=== PATIENT | female | born 1990 | race Two or more races ===

== ENCOUNTER 2020-01-11 13:01 | Emergency (ER) | payer OTHER, SELFPAY ==
--- NOTE | 2020-01-11 13:15 | ECG_ITS ---
Test Reason : CP Blood Pressure : / mmHG Vent. Rate : 065 BPM Atrial Rate : 065 BPM P-R Int : 146 ms QRS Dur : 076 ms QT Int : 386 ms P-R-T Axes : 034 030 031 degrees QTc Int : 401 ms Normal sinus rhythm with sinus arrhythmia Normal ECG Referred By: Leonardo Mccarthy Electronically Signed By:YAYA GENTILE MD
--- NOTE | 2020-01-11 13:15 | XR_ITS ---
EXAMINATION: XR CHEST CLINICAL INFORMATION: Chest pain COMPARISON: Previous chest x-ray March 2019 TECHNIQUE: Frontal view of the chest was obtained. FINDINGS: No significant abnormality is noted involving the heart, lungs, mediastinum, bony thorax or soft tissues. IMPRESSION: Unremarkable examination.
[2020-01-11 13:38] VITALS: BP 119/75; PULSE 60; RESP 16; TEMP 36.6; O2SAT 99; BMI 27.0
--- NOTE | 2020-01-11 13:56 | ED.CHESTPAIN ---
HPI - Chest Pain General Chief Complaint: Chest Pain Stated Complaint: anxiety,chest pressure Time Seen by Provider: 01/11/20 13:15 Source: patient Mode of arrival: ambulatory Limitations: no limitations History of Present Illness HPI narrative: 29-year-old female with past medical history that is significant for anemia, anxiety disorder, remote history of pyelonephritis and Caesarean section presenting today with complaint of substernal chest pain since yesterday. States she had an event yesterday where she felt like she had a panic attack and she frequently gets anxiety started bupropion by her primary care doctor for anxiety has been helping however states having breakthrough anxiety episodes and since yesterday has had associated pain which is similar to her previous. MD complaint: chest pain Onset (ago): day(s) Related Data Previous Rx's Medication Instructions Recorded hydroxyzine HCl 25 mg PO BID PRN #14 tab 01/11/20 Allergies Allergy/AdvReac Type Severity Reaction Status Date / Time No Known Allergies Allergy Unverified 12/21/19 18:09 Review of Systems Review of Systems: Constitutional: No Weight loss, No Fever, No Chills, No Night Sweats, No Fatigue, No Malaise ENT/Mouth: No Hearing loss, No Ear Pain, No Nasal Congestion, No Sinus Pain, No Hoarseness, No sore throat, No Rhinorrhea, No Swallowing Difficulty Eyes: No Eye Pain, No Swelling, No Redness, No Foreign Body, No Discharge, No Vision Changes Cardiovascular: No Chest Pain, No SOB, No Dyspnea on Exertion, No Orthopnea, No Edema, No Palpitations Respiratory: No Cough, No Sputum, No Wheezing, No Smoke Exposure, No Dyspnea Gastrointestinal: No Nausea, No Vomiting, No Diarrhea, No Constipation, No abdominal Pain, No Hematochezia, No Melena Genitourinary: no irregular bleeding, No Dysuria, No Urinary Frequency, No Hematuria, No Urinary Incontinence, No Urgency, No Flank Pain, No Urinary Flow Changes, No Hesitancy Musculoskeletal: No joint pain, No Myalgias, No Joint Swelling Skin: No Skin Lesions, No rash Neuro: No Weakness, No Numbness, No Paresthesias, No Loss of Consciousness, No Dizziness, No Headache Psych: No Anxiety/Panic, No Depression, No SI/HI/AH/VH, No Social Issues, Heme/Lymph: No Bruising, No Bleeding,No Lymphadenopathy Endocrine: No Polyuria, No Polydipsia, No Temperature Intolerance [facility] Past Medical History Attestation statement: The following information was validated with the patient. Medical History (Updated 01/11/20 @ 15:08 by Leonardo Mccarthy NP) Anemia Anxiety Uterine fibroid Social History Social History Alcohol intake: never Smoking Status: Never smoker Use of substances other than those prescribed or required for medical reasons: No Advance Directives: No Advance Directives Information Provided: No Physical Exam Vital Signs and I&O and Narrative: Vital Signs and I&O: Vital Signs Temp 98 F 01/11/20 13:38 Pulse 60 01/11/20 13:38 Resp 16 01/11/20 13:38 BP 119/75 01/11/20 13:38 Pulse Ox 99 01/11/20 13:38 Intake & Output 01/10/20 01/11/20 01/11/20 18:59 06:59 18:59 Weight 64.864 kg Body Mass Index 27.0 Const: General: cooperative and healthy appearing; No acute distress or intoxicated appearing Nutritional Appearance: average body habitus Orientation/consciousness: patient oriented x3 HENMT: Head: Yes normal to inspection Ears: hearing grossly normal bilaterally Eyes: General: appearance normal, both eyes and all related structures Visual White: normal visual white by confrontation Neck: Neck: Yes normal visual inspection and No tender Thyroid: Thyroid normal Chest: Chest palpation & inspection: normal inspection of the chest Resp: Effort & Inspection: normal respiratory effort Cardio: Jugular venous distension: no JVD GI: Inspection: Yes normal to inspection Percussion: Yes normal to percussion Auscultation: normal bowel sounds : General: Yes no CVA tenderness Back/Spine/Pelvis: Back: no CVA tenderness Skin: General skin exam: no rashes or lesions noted Neuro: General: patient oriented x3 Extrem: General: Yes normal to inspection Course Course Course Narrative: Labs finding reviewed. EKG/chest x-ray unremarkable. Will give her prescription of hydroxyzine will contact her primary care doctor for further medication adjustment. No concern for SI or HI. Denies any other complaints. Feels comfortable plan. Stable for discharge. MDM - Chest Pain MDM Narrative Medical decision making narrative: Labs, EKG, chest x-ray. AP more consistent with psychosomatic/musculoskeletal in etiology less likely ACS / PE/dissection. perc negative, heart score 1.7. Differential Diagnosis Differential diagnosis: Likely atypical chest pain, costochondritis and chest pain; Unlikely fracture of rib, pneumothorax, stable angina, unstable angina pectoris and st elevation myocardial infarction Medical Records Data Attestation: I reviewed the patient's medical records. Lab Data Result diagrams: 01/11/20 13:54 01/11/20 13:54 Labs: Lab Results 01/11/20 01/11/20 01/11/20 Range/Units 13:54 13:54 13:54 WBC 3.5 L (4.8-10.8) X10*3/uL RBC 4.32 (4.20-5.50) X10*6/uL Hgb 12.7 (12.0-16.0) g/dl Hct 38.4 (37-47) % MCV 88.9 (80-98) fL MCH 29.4 (27.0-33.0) pg MCHC 33.1 (31.0-35.0) g/dl RDW 11.8 (11.0-16.0) % Plt Count 186 (160-400) X10*3/uL MPV 9.8 (9.4-12.3) fL Immature Gran % (Auto) 0.3 (0.0-0.4) % Neut % (Auto) 63.8 (45-73) % Lymph % (Auto) 24.5 (20-40) % [place] % (Auto) 9.1 (2-11) % Eos % (Auto) 1.7 (0-4) % Baso % (Auto) 0.6 (0-2) % Lymph # (Auto) 0.9 L (1.2-4.9) X10*3/uL [place] # (Auto) 0.3 (0.1-1.2) X10*3/uL Eos # (Auto) 0.1 (0.0-0.4) X10*3/uL Baso # (Auto) 0.0 (0.0-0.2) X10*3/uL Abs Immat Gran (auto) 0.01 (0.00-0.03) X10*3/uL Absolute Neuts (auto) 2.2 (2.0-8.3) X10*3/uL Absolute Nucleated RBC 0.000 (0.0-0.012) X10*3/uL Nucleated RBC % (auto) 0.0 (0.0-0.2) /100WBC Hold Blue Top SEE NOTE Sodium 140 (135-145) mmol/L Potassium 4.5 (3.3-5.1) mmol/l Chloride 106 (96-108) mmol/L Carbon Dioxide 27 (22-29) mmol/L Anion Gap 12 (12-20) BUN 7 L (9-16) mg/dL Creatinine 0.62 (0.5-1.4) mg/dL Estim Creat Clear Calc 117.5 Estimated GFR > 60 Random Glucose 92 (60-115) mg/dL Calcium 9.3 (8.4-10.2) mg/dL Troponin I High Sens (<3.5-17.0) ng/L 01/11/20 Range/Units 13:54 WBC (4.8-10.8) X10*3/uL RBC (4.20-5.50) X10*6/uL Hgb (12.0-16.0) g/dl Hct (37-47) % MCV (80-98) fL MCH (27.0-33.0) pg MCHC (31.0-35.0) g/dl RDW (11.0-16.0) % Plt Count (160-400) X10*3/uL MPV (9.4-12.3) fL Immature Gran % (Auto) (0.0-0.4) % Neut % (Auto) (45-73) % Lymph % (Auto) (20-40) % [place] % (Auto) (2-11) % Eos % (Auto) (0-4) % Baso % (Auto) (0-2) % Lymph # (Auto) (1.2-4.9) X10*3/uL [place] # (Auto) (0.1-1.2) X10*3/uL Eos # (Auto) (0.0-0.4) X10*3/uL Baso # (Auto) (0.0-0.2) X10*3/uL Abs Immat Gran (auto) (0.00-0.03) X10*3/uL Absolute Neuts (auto) (2.0-8.3) X10*3/uL Absolute Nucleated RBC (0.0-0.012) X10*3/uL Nucleated RBC % (auto) (0.0-0.2) /100WBC Hold Blue Top Sodium (135-145) mmol/L Potassium (3.3-5.1) mmol/l Chloride (96-108) mmol/L Carbon Dioxide (22-29) mmol/L Anion Gap (12-20) BUN (9-16) mg/dL Creatinine (0.5-1.4) mg/dL Estim Creat Clear Calc Estimated GFR Random Glucose (60-115) mg/dL Calcium (8.4-10.2) mg/dL Troponin I High Sens < 3.5 (<3.5-17.0) ng/L Imaging Data Chest x-ray: Radiologist's impression: Impression unremarkable examination Dictated by radiologist Dr. Abdi Scores Heart Score History: -0- slightly suspicious ECG: -0- normal Age: -0- < or = 45 Risk factory: -0- no risk factors known Troponin: -0- < or = normal limit Score: 0 Risk: 1.7% Discharge Plan Discharge Clinical Impression: Atypical chest pain, Anxiety Patient Disposition: Home, Self-Care Instructions: Noncardiac Chest Pain (ED), Anxiety (ED) Additional Instructions: taking medication prescribed Follow-up with her primary care doctor as discussed next item treat any concerns or worsening symptoms Thank you Prescriptions: New hydroxyzine HCl 25 mg tablet 25 mg PO BID PRN (Reason: anxiety) Qty: 14 RF: 0 Referrals: Flora Ulloa MD [Primary Care Provider] - 3 days
[2020-01-11 14:01] LABS: MANUAL DIFF FLAG NO
[2020-01-11 14:03] LABS: Basophils Percent Auto 0.6 % (0-2); Eosinophils Absolute Auto 0.1 X10*3/uL (0.0-0.4); Eosinophils Percent Auto 1.7 % (0-4); Hematocrit 38.4 % (37-47); Hemoglobin 12.7 g/dl (12.0-16.0); Imm Gran Abs Auto 0.01 X10*3/uL (0.00-0.03); Imm Gran Pct Auto 0.3 % (0.0-0.4); Lymphocytes Absolute Auto 0.9 X10*3/uL (1.2-4.9); Lymphocytes Percent Auto 24.5 % (20-40); Mean Corpuscular HGB Conc 33.1 g/dl (31.0-35.0); Mean Corpuscular Hemoglobin 29.4 pg (27.0-33.0); Mean Corpuscular Volume 88.9 fL (80-98); Mean Platelet Volume 9.8 fL (9.4-12.3); Monocytes Absolute Auto 0.3 X10*3/uL (0.1-1.2); Monocytes Percent Auto 9.1 % (2-11); Neutrophils Absolute Auto 2.2 X10*3/uL (2.0-8.3); Neutrophils Percent Auto 63.8 % (45-73); Platelet Count 186 X10*3/uL (160-400); Red Blood Count 4.32 X10*6/uL (4.20-5.50); Red Cell Distribution Width 11.8 % (11.0-16.0); White Blood Count 3.5 X10*3/uL (4.8-10.8)
[2020-01-11 14:31] LABS: Anion Gap 12 (12-20); Blood Urea Nitrogen 7 mg/dL (9-16); Calcium 9.3 mg/dL (8.4-10.2); Carbon Dioxide 27 mmol/L (22-29); Chloride 106 mmol/L (96-108); Creatinine Clr Calc Pharmacy 117.5; Estimated Glomerular Filt Rate > 60; Glucose Random 92 mg/dL (60-115); Potassium 4.5 mmol/l (3.3-5.1); Sodium 140 mmol/L (135-145)
[2020-01-11 14:52] LABS: Troponin-I High Sensitivity < 3.5 ng/L (<3.5-17.0)
== END 2020-01-11 15:41 | disposition home or self-care (01) ==
PROVIDERS: Nurse Practitioner Primary Care; Emergency Provider Internal Medicine; PCP Internal Medicine
DX: R07.89 Other chest pain (principal); F41.9 Anxiety disorder, unspecified; D64.9 Anemia, unspecified
CPT/HCPCS: 36415; 71045; 80048; 84484; 85025; 93005; 99284

== ENCOUNTER 2020-01-16 15:55 | Outpatient (REF) | payer OTHER, SELFPAY | END 2020-01-16 15:56 | disposition home or self-care (01) | LOC: HO.LAB 15:55 | PROVIDERS: Visit Provider Internal Medicine | DX: Z20.828 Contact with and (suspected) exposure to other viral communicable diseases (principal) | CPT/HCPCS: 87635 ==

== ENCOUNTER 2020-03-22 11:46 | Outpatient (REF) | payer OTHER, SELFPAY | END 2020-03-22 11:47 | disposition home or self-care (01) | LOC: HO.LAB 11:46 | PROVIDERS: PCP Internal Medicine; Visit Provider Internal Medicine | DX: Z20.828 Contact with and (suspected) exposure to other viral communicable diseases (principal) | CPT/HCPCS: C9803; U0003 ==

== ENCOUNTER 2020-03-27 16:10 | Outpatient (REF) | payer OTHER, SELFPAY ==
--- NOTE | 2020-03-27 16:19 | XR_ITS ---
EXAMINATION: XR KNEE, RIGHT CLINICAL INFORMATION: Pain COMPARISON: None TECHNIQUE: Frontal and lateral of the right knee. FINDINGS: Bones and soft tissues are normal. No fracture or joint effusion. Alignment is anatomic. Mild narrowing of medial joint space suggest mild DJD.. No abnormal soft tissue calcification. XR/XR knee RT 2V IMPRESSION: Mild DJD.
== END 2020-03-27 16:11 | disposition home or self-care (01) ==
LOC: HO.XRAY 16:10
PROVIDERS: PCP Internal Medicine; Visit Provider Internal Medicine
DX: M25.561 Pain in right knee (principal)
CPT/HCPCS: 73560

== ENCOUNTER 2020-04-15 09:08 | Outpatient (REF) | payer OTHER, SELFPAY ==
[2020-04-15 10:49] LABS: HBc Num1 0.08 S/CO (0.00-0.79); Hepatitis B Core Antibody Nonreactive (Nonreactive)
[2020-04-16 12:17] LABS: Rubeola IgG (Measles) >300.00 AU/mL
== END 2020-04-15 09:09 | disposition home or self-care (01) ==
LOC: HO.LAB 09:08
PROVIDERS: PCP Internal Medicine; Visit Provider Nurse Practitioner Family
DX: Z00.00 Encounter for general adult medical examination without abnormal findings (principal)
CPT/HCPCS: 36415; 86704; 86735; 86762; 86765; 86787

== ENCOUNTER 2020-04-16 08:00 | Outpatient (RCR) | payer OTHER, SELFPAY ==
--- NOTE | 2020-04-09 10:16 | MHC.PT.EP ---
[facility] [place] Office [place] Office [place] Office [address] Ronald Reynoso [address] [phone] F: [phone] F: [phone] F: [phone] F: [phone] Physical Therapy Plan of Care Date of Evaluation: 04/09/20 Date of Surgery: N/A Diagnosis: Chronic (R) Knee pain Assessment: Pt is a 29 y.o.f. with chief complaint of (R) knee pain located along medial joint line. Pt presents today with weakness in (R) knee extensors and (B) hip abductors, gait abnormalities including genu valgus, (R) trendelenburg, and pain. Pt genu valgus during gait is likely due to weak hip abductors. Pt sxs are consistent with possible medial meniscus tear resulting in pain and difficulty with walking,, driving, and stairs. Pt will benefit from skilled PT to increase hip and knee musculature strength and decrease pain to allow pt to return to prior level of activity with less limitations. Frequency and Duration: The patient will be seen 2x/week for 5 weeks Short Term Goals: 3 weeks: 1. Initiate HEP 2. Pt will improve B hip strength by one MMT grade 3. Pt will be able to ambulate > 15min with pain < 3/10 Costume Maker Goals: 5 weeks: 1. I with HEP and self management of sx 2. Pt will be able to ascend/descend stairs in step through pattern with pain < 2/10 3. Pt will be able to walk > 25 min with pain < 3/10 Treatment Plan: Modalities to reduce pain, spasms and effusion. Manual therapy to restore motion and function. Therapeutic exercise to improve strength and flexibility. Neuromuscular re-education for posture and balance. Therapeutic activities to return to functional activities of daily living. Electronically signed by: Amy Cameron PT DPT Please sign and return to therapist. Thank you for your referral.
--- NOTE | 2020-05-02 09:57 | MHC.PT.DC ---
[facility] [place] Office [place] Office [place] Office [address] Ronald Reynoso 140 [facility] [phone] F: [phone] F: [phone] F: [phone] F: [phone] Physical Therapy Discharge Report Diagnosis: Chronic (R) Knee pain Date of Surgery: N/A Date of Evaluation: 04/09/20 Date of Discharge: 05/02/20 Treatments to Date: 3 Cancellations to Date: 0 No Shows to Date: 0 Discharge Status: Visit Non-compliance Discharge Summary: D/c secondary to noncompliance with attendance policy and several no shows Electronically signed by: Amy Cameron PT DPT Please sign and return to therapist. Thank you for your referral.
== END 2020-05-02 09:57 | disposition other institution (70) ==
LOC: HO.PT 08:00
PROVIDERS: PCP Internal Medicine; Visit Provider Internal Medicine
DX: M25.561 Pain in right knee (principal); G89.29 Other chronic pain
CPT/HCPCS: 97110; 97140; 97161

== ENCOUNTER 2020-04-19 09:44 | Outpatient (REF) | payer OTHER, SELFPAY ==
--- NOTE | 2020-04-19 09:49 | XR_ITS ---
EXAMINATION: XR KNEE, RIGHT CLINICAL INFORMATION: Pain. COMPARISON: None TECHNIQUE: Single view of the right knee. FINDINGS: Single sunrise view of the right knee reveals mild lateral subluxation of patella in relation to anterior intercondylar depression of distal femur. No bony erosive changes no loose bodies or soft tissue swelling seen. XR/XR knee RT 2V IMPRESSION: Mild lateral subluxation of patella in relation to the intercondylar depression distal femur. No acute fracture or loose body seen.
== END 2020-04-19 09:45 | disposition home or self-care (01) ==
LOC: HO.XRAY 09:44
PROVIDERS: PCP Internal Medicine; Visit Provider Physician Assistant
DX: M25.561 Pain in right knee (principal); M23.91 Unspecified internal derangement of right knee
CPT/HCPCS: 73560; 99202

== ENCOUNTER 2020-04-26 11:37 | Outpatient (REF) | payer OTHER, SELFPAY ==
[2020-04-27 11:28] LABS: C. trachomatis RNA TMA NOT DETECTED (NOT DETECTED); N. gonorrhoeae RNA TMA NOT DETECTED (NOT DETECTED)
== END 2020-04-26 11:38 | disposition home or self-care (01) ==
LOC: HO.LAB 11:37
PROVIDERS: Visit Provider Advanced Practice Midwife
DX: R10.2 Pelvic and perineal pain (principal); Z20.2 Contact with and (suspected) exposure to infections with a predominantly sexual mode of transmission
CPT/HCPCS: 36415; 87491; 87591

== ENCOUNTER 2020-04-26 18:31 | Outpatient (REF) | payer OTHER, SELFPAY ==
--- NOTE | 2020-04-26 18:34 | MR_ITS ---
EXAMINATION: MR KNEE WITHOUT CONTRAST, RIGHT CLINICAL INFORMATION: Medial right knee pain. Evaluate for internal derangement. COMPARISON: Right knee radiographs dated 04/19/2020 and 03/27/2020 TECHNIQUE: MRI of the knee without contrast was performed using routine sequences on a high-field scanner. FINDINGS: MENISCI: Medial Meniscus: Intact. Lateral Meniscus: Intact. LIGAMENTS: Cruciate: Intact. Collateral: Intact. EXTENSOR MECHANISM: Intact. ARTICULAR CARTILAGE/BONE: Patellofemoral Compartment: Normal. Medial Compartment: Normal . Lateral Compartment: Normal. JOINT FLUID AND BURSAE: Normal. MR/MR knee RT wo con IMPRESSION: Unremarkable examination. No acute meniscal or ligamentous injury.
== END 2020-04-26 18:32 | disposition home or self-care (01) ==
LOC: HO.MRI 18:31
PROVIDERS: Visit Provider Physician Assistant
DX: M23.91 Unspecified internal derangement of right knee (principal)
CPT/HCPCS: 73721

== ENCOUNTER 2020-08-30 21:57 | Emergency (ER) | payer OTHER, SELFPAY ==
[2020-08-30 21:59] VITALS: BP 117/72; PULSE 87; RESP 18; TEMP 36.4; O2SAT 95; BMI 30.1
--- NOTE | 2020-08-30 23:57 | ED.NAVMDI ---
HPI - Nausea/Vomiting/Diarrhea General Chief complaint: Nausea/Vomiting/Diarrhea Stated complaint: Vomiting blood/12 weeks Time Seen by Provider: 08/30/20 23:56 Source: patient Mode of arrival: ambulatory Limitations: no limitations History of Present Illness HPI Narrative: Patient 12 weeks with hyperemesis gravidarum vomited small amount of streaks of bright red blood 2 days ago vomited again today and this time was slight blackish patient been feeling burning sensation for the past couple of days taking Zofran with partial response, called triage nurse as the patient go to hospital. Patient denies any melena and no history of any ulcer no significant abdominal pain Related Data Home Medications Medication Instructions Recorded Confirmed buspirone 7.5 mg tablet 7.5 mg PO BID 03/27/20 05/02/20 Previous Rx's Medication Instructions Recorded hydroxyzine HCl 25 mg PO BID PRN #14 tab 01/11/20 naproxen 500 mg tablet 500 mg PO BID 30 Days #60 tab 04/22/20 vitamins with calcium 1 tab PO DAILY 30 Days #30 tab 04/30/20 no.72-iron 29 mg-folic acid 1 mg tablet omeprazole 40 mg PO DAILY #30 cap 08/31/20 sucralfate 1 g PO TID #90 tab 08/31/20 Allergies Allergy/AdvReac Type Severity Reaction Status Date / Time No Known Allergies Allergy Verified 08/30/20 22:05 Review of Systems Review of Systems: Constitutional : No Weight loss, No Fever, No Chills ENT/Mouth : No sore throat, No Rhinorrhea Eyes: No Eye Pain, No Swelling Cardiovascular : No Chest Pain, no palpitations Respiratory : No Cough, No Sputum, no shortness of breath Gastrointestinal :+ Nausea,+ Vomiting, No Diarrhea, No abdominal Pain, no black stools Genitourinary : No Dysuria, No Urinary Frequency Musculoskeletal : No joint pain, No Myalgias, No Joint Swelling Skin : No Skin Lesions, No rash Neuro : No Weakness, No Numbness, No Dizziness, No Headache Psych : No Anxiety/Panic, No Depression Heme/Lymph: No Bruising, No Lymphadenopathy Endocrine : No Polyuria, No Polydipsia All other systems reviewed and are negative [facility] Past Medical History Medical History Anemia Anxiety Leukopenia Physical exam Right knee pain Uterine fibroid Surgical History H/O myomectomy History of section Family History Family History Father Medical history unknown Mother Stroke Maternal Grandmother Diabetes Hypertension Paternal Grandmother Breast cancer Throat cancer Son In good health Social History Social History Alcohol intake: never Advance Directives: No Advance Directives Information Provided: No Patient : Yes (DOREEN: 03/13/21) Current occupational status: employed 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 Oriented X3. No acute distress. Eyes: PERRLA, No Nystagmus ENT: Pharynx normal. Oral Mucosa moist Neck: Normal inspection. Neck supple. CVS: Normal heart rate and rhythm. Pulses normal. Respiratory: No respiratory distress. Equal air entry bilateral, no wheezing/rales/rhonchi Abdomen: Soft and nontender. Gravid uterus Bowel sounds are present, , no CVA tenderness Skin: Skin warm and dry. Normal skin color. Normal skin turgor. Extremities: No lower extremity edema. No calf tenderness Neuro: Oriented X 3. No motor deficit. No sensory deficit.No cerebellar signs , cranial nerves II-XII intact MDM - Nausea/Vomiting/Diarrhea MDM Narrative Medical decision making narrative: Patient with mild gastritis vomiting. Slight streaks of blood no melena vital stable will discharge patient home on Prilosec and Maalox bleeding likely from ruptured blood vessel because patient was retching a lot while vomiting Discharge Plan Discharge Clinical Impression: Gastritis Qualifiers: Gastritis type: superficial Chronicity: acute Gastritis bleeding: without bleeding Qualified Code(s): K29.00 - Acute gastritis without bleeding Patient Disposition: Home, Self-Care Instructions: Gastritis (ED) Additional Instructions: Likely you had small blood vessel ruptured while vomiting and causing the old blood in vomitus Take Prilosec as advised and nausea medication and follow with PCP. Report to the ER/PCP if black stools or bleeding continues Prescriptions: New omeprazole 40 mg capsule,delayed release(DR/EC) 40 mg PO DAILY Qty: 30 RF: 0 sucralfate 1 gram tablet 1 g PO TID Qty: 90 RF: 0 No Action naproxen 500 mg tablet 500 mg PO BID 30 Days Qty: 60 RF: 3 Plus 29 mg iron- 1 mg tablet 1 tab PO DAILY 30 Days Qty: 30 RF: 11 hydroxyzine HCl 25 mg tablet 25 mg PO BID PRN (Reason: anxiety) Qty: 14 RF: 0 buspirone 7.5 mg tablet 7.5 mg PO BID RF: 0 Interventions: ED Discharge Assessment Last Done: 08/31/20 00:41 Discharge Date/Time: 08/31/20 00:42
[2020-08-31] MEDS: Magnesium Hydrox/Alum Hydrox 30 ML ORAL.SUSP PO (00:23)
[2020-08-31] MEDS: Lidocaine HCl Viscous 2 % 15 ML SOLUTION MUCOUS MEM (00:23)
[2020-08-31] MEDS: Omeprazole 40 MG CAPSULE.DR PO (00:24)
== END 2020-08-31 00:42 | disposition home or self-care (01) ==
PROVIDERS: Emergency Provider Internal Medicine; PCP Internal Medicine
DX: O99.611 Diseases of the digestive system complicating pregnancy, first trimester (principal); K29.00 Acute gastritis without bleeding; Z3A.12 12 weeks gestation of pregnancy
CPT/HCPCS: 99283

== ENCOUNTER 2021-01-27 04:16 | Emergency (ER) | payer OTHER, SELFPAY ==
[2021-01-27 04:22] VITALS: BP 104/69; PULSE 127; RESP 18; TEMP 37; O2SAT 100
[2021-01-27 04:29] VITALS: BMI 29.2
--- NOTE | 2021-01-27 04:42 | ED_ITS ---
HPI - Anxiety General Chief Complaint: Anxiety Stated Complaint: cough, preg abt 34 wks Time Seen by Provider: 01/27/21 04:26 Source: patient Mode of arrival: ambulatory Limitations: no limitations History of Present Illness HPI narrative: Patient was emergency room and restlessness. Patient took [id number] decongestant afrin, and since then she has been feeling anxious and restless. Patient states she was tested for COVID 2 days ago, patient had been complaining of cough. Patient states throughout the night after her last dose she is feeling restless, has insomnia. Patient denies chest pain, no shor tness of breath, no lower extremity tenderness. Patient denies contractions, no vaginal fluid leakage or blood. Patient denies vomiting or diarrhea Related Data Previous Rx's Medication Instructions Recorded vitamins with calcium 1 tab PO DAILY 30 Days #30 tab 04/30/20 no.72-iron 29 mg-folic acid 1 mg tablet ( Plus) omeprazole 40 mg capsule,delayed 40 mg PO DAILY #30 cap 08/31/20 release Allergies Allergy/AdvReac Type Severity Reaction Status Date / Time No Known Allergies Allergy Verified 10/09/20 15:05 Review of Systems Review of Systems: Constitutional : No Weight loss, No Fever, No Chills, No Night Sweats, No Fatigue, No Malaise ENT/Mouth : No Hearing loss, No Ear Pain, No Nasal Congestion, No Sinus Pain, No Hoarseness, No sore throat, No Rhinorrhea, No Swallowing Difficulty Eyes: No Eye Pain, No Swelling, No Redness, No Foreign Body, No Discharge, No Vision Changes Cardiovascular : No Chest Pain, No SOB, No Dyspnea on Exertion, No Orthopnea, No Edema, complaining of Palpitations Respiratory : No Cough, No Sputum, No Wheezing, No Smoke Exposure, No Dyspnea Gastrointestinal : No Nausea, No Vomiting, No Diarrhea, No Constipation, No abdominal Pain, No Hematochezia, No Melena Genitourinary : no irregular bleeding, No Dysuria, No Urinary Frequency, No Hematuria, No Urinary Incontinence, No Urgency, No Flank Pain, No Urinary Flow Changes, No Hesitancy Musculoskeletal : No joint pain, No Myalgias, No Joint Swelling Skin : No Skin Lesions, No rash Neuro : No Weakness, No Numbness, No Paresthesias, No Loss of Consciousness, No Dizziness, No Headache Psych : Complaining of anxiety, No Depression, No SI/HI/AH/VH, No Social Issues, Heme/Lymph: No Bruising, No Bleeding,No Lymphadenopathy Endocrine : No Polyuria, No Polydipsia, No Temperature Intolerance [facility] Past Medical History Medical History Anemia Anxiety GERD (gastroesophageal reflux disease) Leukopenia Physical exam Right knee pain Uterine fibroid Surgical History H/O myomectomy History of section Family History Family History (Updated 10/09/20 @ 14:53 by FARZANA Marroquin) Father Medical history unknown Mother Stroke Maternal Grandmother Diabetes Hypertension Paternal Grandmother Breast cancer Throat cancer Son In good health Social History Social History Housing: Apartment Alcohol intake: never Patient Tobacco Use Status: Never used Tobacco e-Cigarette/Vaping Use: Never Used Second Hand Smoke Exposure: No Advance Directives: No Advance Directives Information Provided: Yes Patient : No service: No Current occupational status: unemployed 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 Oriented X3. No acute distress. Anxious Eyes: Pupils equal, round and reactive to light. ENT: Pharynx normal. Neck: Normal inspection. Neck supple. No lymph nodes noted. No crepitus CVS: Tachycardic between 100 and 110, Pulses normal. Normal S1 and S2 Respiratory: No respiratory distress. Breath sounds normal. No Wheezing. No rales Abdomen: Soft and nontender. No rigidity. No distention. Bedside ultrasound shows a heart rate of 130-140 Skin: Skin warm and dry. Normal skin color. Normal skin turgor. Extremities: No lower extremity edema. No calf pain on palpation/squeezing, No Lacerations. No Rash Neuro: Oriented X 3. No motor deficit. No sensory deficit. Moving all extermities. No slurred speech. Course Course Course Narrative: I discussed with the patient that this is likely a side effect of the decongestants that she used. As mentioned above, the baby's heart rate 130-140. Discharge Plan Discharge Clinical Impression: Anxiety, Side effect of medication Patient Disposition: Home, Self-Care Instructions: Heart Palpitations (ED) Prescriptions: No Action Plus 29 mg iron- 1 mg tablet 1 tab PO DAILY 30 Days Qty: 30 RF: 11 omeprazole 40 mg capsule,delayed release(DR/EC) 40 mg PO DAILY Qty: 30 RF: 0
[2021-01-27 05:08] VITALS: PULSE 103
== END 2021-01-27 05:17 | disposition home or self-care (01) ==
PROVIDERS: Emergency Provider Emergency Medicine; PCP Internal Medicine
DX: O9A.213 Injury, poisoning and certain other consequences of external causes complicating pregnancy, third trimester (principal); F41.9 Anxiety disorder, unspecified; T48.5X5A Adverse effect of other anti-common-cold drugs, initial encounter; Z3A.34 34 weeks gestation of pregnancy; Y92.9 Unspecified place or not applicable
CPT/HCPCS: 99283

== ENCOUNTER 2021-01-31 08:44 | Emergency (ER) | payer OTHER, SELFPAY ==
[2021-01-31 09:09] VITALS: BP 103/73; PULSE 96; RESP 18; TEMP 36.1; O2SAT 100; BMI 29.0
--- NOTE | 2021-01-31 09:27 | ED.GENADULT ---
HPI - General Adult General Chief complaint: General Medical Stated complaint: ear issue, anxiety Time Seen by Provider: 01/31/21 09:13 Source: patient Mode of arrival: ambulatory Limitations: no limitations History of Present Illness HPI narrative: 30 y/o female with history of anxiety disorder, who is currently 35 weeks is presenting to the ER with multiple complaints today. She reports she has 1 week of stuffy nose, sinus pressure and feeling like her ears are blocked. She denies any fever chills, shortness of breath, chest pain, nausea, vomiting, diarrhea, abdominal pain. She had a negative COVID swab 1 week ago. She says said she got sick her anxiety has been getting significantly worse. She says before her she was taking BuSpar daily for anxiety, but when she got she was told trying half of the does but that it was safe for her to take. Patient reports only taking as needed, she would not want to take too much medication while she is . She has been taking her BuSpar the last few days in addition she has been trying Benadryl at night to help her sleep, but she reports ongoing severe anxiety with inability to sleep. She is anxious about her scheduled that is planned for February 17. Her anxiety is making her depressed but she is not suicidal or homicidal. MD complaint: Anxiety and nasal congestion Onset (ago): week(s) (1) Location: head and face Radiation: non-radiation Severity: moderate Quality: aching Pain Consistency: constant Relieving factors: medication Exacerbating factors: other (night) Associated symptoms: denies other symptoms Treatments prior to arrival: none Related Data Previous Rx's Medication Instructions Recorded vitamins with calcium 1 tab PO DAILY 30 Days #30 tab 04/30/20 no.72-iron 29 mg-folic acid 1 mg tablet ( Plus) omeprazole 40 mg capsule,delayed 40 mg PO DAILY #30 cap 08/31/20 release amoxicillin 875 mg-potassium 1 tab PO BID #14 tab 01/31/21 clavulanate 125 mg tablet (Augmentin) fluticasone propionate 50 1 spray INTRANASAL BID #16 g 01/31/21 mcg/actuation nasal spray,suspension (Flonase Allergy Relief) Allergies Allergy/AdvReac Type Severity Reaction Status Date / Time No Known Allergies Allergy Verified 10/09/20 15:05 Review of Systems Review of Systems: Constitutional: No Fever, No Chills ENT/Mouth: No sore throat, No Rhinorrhea, No Swallowing Difficulty, +Nasal congestion, +sinus pain, No hearing loss Eyes: No Eye Pain, No Swelling, No Redness Cardiovascular: No Chest Pain, No SOB, No Orthopnea, No Edema Respiratory: No Cough, No Sputum, No Wheezing, No dyspnea Gastrointestinal: No Nausea, No Vomiting, No Diarrhea, No abdominal Pain, No Hematochezia, No Melena Genitourinary: No Dysuria, No Urinary Frequency, No Hematuria Musculoskeletal: No joint pain, No Myalgias Skin: No Skin Lesions, No rash Neuro: No Weakness, No Numbness, No Dizziness, + Headache Psych: + Anxiety/Panic, + Depression Heme/Lymph: No Bruising, No Lymphadenopathy Endocrine: No Polyuria, No Polydipsia PMFSH Past Medical History Medical History Anemia Anxiety GERD (gastroesophageal reflux disease) Leukopenia Physical exam Right knee pain Uterine fibroid Surgical History H/O myomectomy History of section Family History Family History (Updated 10/09/20 @ 14:53 by FARZANA Marroquin) Father Medical history unknown Mother Stroke Maternal Grandmother Diabetes Hypertension Paternal Grandmother Breast cancer Throat cancer Son In good health Social History Social History Housing: Apartment Alcohol intake: never Patient Tobacco Use Status: Never used Tobacco e-Cigarette/Vaping Use: Never Used Second Hand Smoke Exposure: No Advance Directives: No Patient : Yes service: No Current occupational status: unemployed 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 Oriented X3. No acute distress. Eyes: Pupils equal, round and reactive to light. ENT: Pharynx normal. Bilateral nasal turbinates are erythematous and swollen. Bilateral maxillary sinus tenderness. Neck: Normal inspection. Neck supple. CVS: Normal heart rate and rhythm. Pulses normal. Respiratory: No respiratory distress. Breath sounds normal. Abdomen: Gravid uterus to just below the ribs. Nontender. heart tones 147. Pelvic deferred Skin: Skin warm and dry. Normal skin color. Normal skin turgor. No rashes. Extremities: No lower extremity edema. Neuro/psych: Oriented X 3. Well kempt, mental status grossly normal. She is anxious, with good insight and judgment. She is not suicidal or homicidal. Course Course Course Narrative: 30-year-old female who is 35 weeks presenting with over 1 week of nasal congestion, ear pain, not feeling well. Had a negative COVID 1 week ago. She has yellow nasal congestion, consistent with a possible sinus infection. She is also reporting increased anxiety with inability to sleep. She is not suicidal or homicidal. Will get a repeat COVID test and have the care team assessed her. Reevaluation(s) Reevaluation #1: Sonia from the CARE team discussed referral to [facility] in [place]. Patient agreeable. She will try Unisom for sleep. Her nurse tooling engineering tech just called her on the phone because she knows she is in the emergency department and recommended this. We discussed taking BuSpar regularly rather than p.r.n. and she will try that. She will follow-up with her tooling engineering tech in the office. Will treat for acute sinusitis with Augmentin and Flonase. Stable for discharge home. Medical Decision Making Lab Data Labs: Lab Results 01/31/21 Range/Units 09:26 COVID-19 ([facility]) Negative (Negative) COVID-19 Clin Com See Note Discharge Plan Discharge Clinical Impression: Anxiety Sinusitis, acute Qualifiers: Sinusitis location: maxillary Recurrence: non-recurrent Qualified Code(s): J01.00 - Acute maxillary sinusitis, unspecified Patient Disposition: Home, Self-Care Instructions: Sinusitis (ED), Cognitive Behavioral Therapy (ED), Anxiety (ED) Additional Instructions: You were negative for COVID-19. Your being treated for a sinus infection, take the antibiotic as directed and use the prescribed nasal steroid to help decrease the inflammation and swelling in your nose. Both of these medications are safe in . Recommend taking your BuSpar daily to help with your anxiety. T with Benadryl as well Take Tylenol as needed for headache. If Benadryl is not helping his sleep, you can try Unisom. Do not recommend taking these together. Follow up with your tooling engineering tech A referral has been made for [facility] Prescriptions: New amoxicillin-pot clavulanate [Augmentin] 875-125 mg tablet 1 tab PO BID Qty: 14 RF: 0 fluticasone propionate [Flonase Allergy Relief] 50 mcg/actuation spray,suspension 1 spray intranasal BID Qty: 16 RF: 0 No Action Plus 29 mg iron- 1 mg tablet 1 tab PO DAILY 30 Days Qty: 30 RF: 11 omeprazole 40 mg capsule,delayed release(DR/EC) 40 mg PO DAILY Qty: 30 RF: 0
[2021-01-31 10:14] LABS: COVID-19 Test Negative (Negative)
--- NOTE | 2021-01-31 10:19 | MHC.CARE ---
CARE Team met with Pt to provide support in the context of her anxiety. Pt open to a referral to [facility].
== END 2021-01-31 10:44 | disposition home or self-care (01) ==
PROVIDERS: Physician Assistant; Emergency Provider Emergency Medicine; PCP Internal Medicine
DX: O99.513 Diseases of the respiratory system complicating pregnancy, third trimester (principal); J01.00 Acute maxillary sinusitis, unspecified; O99.343 Other mental disorders complicating pregnancy, third trimester; F41.9 Anxiety disorder, unspecified; Z3A.35 35 weeks gestation of pregnancy; Z20.822 Contact with and (suspected) exposure to COVID-19
CPT/HCPCS: 36415; 87635; 99283

== ENCOUNTER 2021-04-01 02:39 | Emergency (ER) | payer OTHER, SELFPAY ==
[2021-04-01 03:04] VITALS: BP 104/64; PULSE 74; RESP 16; TEMP 35.6; O2SAT 99; BMI 27.1
--- NOTE | 2021-04-01 06:23 | PC.NURSE ---
pt c/o waiting and has not been seen yet. pt is c/o I have been waiting for over an hour pt awaiting for MD's eval.
== END 2021-04-01 06:57 | disposition left against medical advice (07) ==
PROVIDERS: Emergency Provider Emergency Medicine; PCP Internal Medicine
DX: H92.09 Otalgia, unspecified ear (principal)
CPT/HCPCS: 99283

== ENCOUNTER 2021-08-19 07:42 | Outpatient (REF) | payer OTHER, SELFPAY ==
[2021-08-19 08:14] LABS: MANUAL DIFF FLAG NO
[2021-08-19 08:54] LABS: Basophils Percent Auto 0.4 % (0-2); Eosinophils Absolute Auto 0.2 X10*3/uL (0.0-0.4); Eosinophils Percent Auto 3.3 % (0-4); Hematocrit 35.6 % (37.0-47.0); Hemoglobin 11.9 g/dl (12.0-16.0); Imm Gran Abs Auto 0.01 X10*3/uL (0.00-0.03); Imm Gran Pct Auto 0.2 % (0.0-0.4); Lymphocytes Absolute Auto 1.4 X10*3/uL (1.2-4.9); Lymphocytes Percent Auto 27.5 % (20-40); Mean Corpuscular HGB Conc 33.4 g/dl (31.0-35.0); Mean Corpuscular Hemoglobin 29.9 pg (27.0-33.0); Mean Corpuscular Volume 89.4 fL (80.0-98.0); Mean Platelet Volume 9.7 fL (9.4-12.3); Monocytes Absolute Auto 0.5 X10*3/uL (0.1-1.2); Monocytes Percent Auto 9.1 % (2-11); Neutrophils Absolute Auto 3.1 x10*3/uL (2.0-8.3); Neutrophils Percent Auto 59.5 % (45-73); Platelet Count 239 X10*3/uL (160-400); Red Blood Count 3.98 X10*6/uL (4.20-5.50); Red Cell Distribution Width 11.9 % (11.0-16.0); White Blood Count 5.2 X10*3/uL (4.8-10.8)
[2021-08-19 09:16] LABS: Iron 49 mcg/dL (30-160); Percent Iron Saturation 14 % (15-50); Total Iron Binding Capacity 346 mcg/dL (228-428); Unsaturated Iron Binding 297 ug/dL
[2021-08-19 09:40] LABS: TSH reflex Free T4 0.72 uIU/mL (0.32-4.0)
== END 2021-08-19 07:43 | disposition home or self-care (01) ==
LOC: HO.LAB 07:42
PROVIDERS: PCP Internal Medicine; Visit Provider Nurse Practitioner Family
DX: I10 Essential (primary) hypertension (principal); L65.9 Nonscarring hair loss, unspecified
CPT/HCPCS: 36415; 83540; 84443; 85025

== ENCOUNTER 2021-10-15 06:57 | Emergency (ER) | payer OTHER, SELFPAY ==
--- NOTE | ~2021-10-15 | US_ITS ---
EXAMINATION: US ABDOMEN LIMITED CLINICAL INFORMATION: Right upper quadrant pain. COMPARISON: None TECHNIQUE: Limited real-time imaging of the right upper quadrant performed. Examination is focused on the gallbladder. FINDINGS: The gallbladder is physiologically distended and has normal wall thickness. No polyps, cholelithiasis or pericholecystic fluid. The visualized portions of liver have normal size and echotexture. The visualized proximal common bile duct is normal in caliber (0.3 - 0.4 cm diameter). US/US abdomen limited IMPRESSION: Gallbladder is normal. No evidence of cholelithiasis, cholecystitis or biliary tract obstruction.
[2021-10-15 07:14] VITALS: BP 111/74; PULSE 112; RESP 18; TEMP 37.3; O2SAT 98; BMI 29.1
[2021-10-15 07:27] LABS: Basophils Percent Auto 0.1 % (0-2); Eosinophils Percent Auto 0.1 % (0-4); Hemoglobin 12.9 g/dl (12.0-16.0); Monocytes Percent Auto 3.6 % (2-11); PLT CLUMP 1; Red Cell Distribution Width 11.8 % (11.0-16.0); SCAN SMEAR FLAG 1
[2021-10-15 07:28] LABS: Hematocrit 38.7 % (37.0-47.0); Imm Gran Abs Auto 0.02 X10*3/uL (0.00-0.03); Imm Gran Pct Auto 0.2 % (0.0-0.4); Lymphocytes Absolute Auto 0.2 X10*3/uL (1.2-4.9); Lymphocytes Percent Auto 2.2 % (20-40); MANUAL DIFF FLAG SCAN; Mean Corpuscular HGB Conc 33.3 g/dl (31.0-35.0); Monocytes Absolute Auto 0.3 X10*3/uL (0.1-1.2); Neutrophils Absolute Auto 8.6 x10*3/uL (2.0-8.3); Neutrophils Percent Auto 93.8 % (45-73); Red Blood Count 4.45 X10*6/uL (4.20-5.50)
[2021-10-15 07:30] LABS: Appearance Urine HAZY; Color Urine YELLOW; Glucose Urine UA NEG (NEG); Leukocyte Esterase Urine NEG (NEG); Nitrite Urine NEG (NEG); Specific Gravity - Urine >= 1.030 (1.005-1.025); Urine Blood NEG (NEG); Urine Ketones NEG (NEG); Urine Protein NEG (NEG-TRACE)
[2021-10-15 07:38] LABS: Mucus Urine 1+ /LPF; Squamous Epithelial Cell Urine 4+ /LPF
[2021-10-15 07:39] LABS: Bacteria Urine TRACE /LPF; WBC Urine 0-2 /HPF (0-4)
[2021-10-15 07:40] LABS: RBC Urine 0 /HPF (0)
[2021-10-15 07:47] LABS: Alanine Aminotransferase 16 U/L (0-31); Albumin Level 4.9 g/dL (3.5-5.0); Alkaline Phosphatase 81 U/L (39-117); Anion Gap 16 (12-20); Aspartate Amino Transferase 19 U/L (5-31); Bilirubin Direct 0.4 mg/dL (0.0-0.5); Blood Urea Nitrogen 14 mg/dL (9-16); Calcium 9.1 mg/dL (8.4-10.2); Carbon Dioxide 21 mmol/L (22-29); Chloride 106 mmol/L (96-108); Creatinine Clr Calc Pharmacy 106.1; Estimated Glomerular Filt Rate > 60; Glucose Random 117 mg/dL (60-115); Potassium 4.7 mmol/L (3.3-5.1); Sodium 138 mmol/L (135-145)
[2021-10-15 07:49] LABS: Platelet Count 223 X10*3/uL (160-400); White Blood Count 9.2 X10*3/uL (4.8-10.8)
[2021-10-15 07:50] LABS: SLIDE REVIEW VERIFIED
[2021-10-15 07:57] VITALS: BP 115/68; PULSE 94; RESP 16; O2SAT 97
--- NOTE | 2021-10-15 08:16 | ED.NAVMDI ---
HPI - Nausea/Vomiting/Diarrhea General Chief complaint: Abdominal Pain Stated complaint: abd pain vomiting Time Seen by Provider: 10/15/21 07:56 Source: patient Mode of arrival: ambulatory Limitations: no limitations History of Present Illness MD elicited complaint: nausea, vomiting, diarrhea and abdominal pain Onset (ago): day(s) (Wednesday) Description of vomiting: food contents and watery Associated nausea: Yes Associated abdominal pain: Yes Location of pain: epigastric and RUQ Pain consistency: intermittent Severity: moderate Quality: cramping Exacerbating factors: eating Relieving factors: none Associated symptoms: loss of appetite, malaise and nausea/vomiting Related Data Home Medications Medication Instructions Recorded Confirmed cyclobenzaprine 5 mg tablet 5 mg PO BID 08/18/21 Previous Rx's Medication Instructions Recorded buspirone 7.5 mg tablet 7.5 mg PO BID 90 days #180 tabs 05/06/21 ondansetron 4 mg disintegrating 4 mg PO Q8H PRN nausea and 10/15/21 tablet vomiting #20 tabs Allergies Allergy/AdvReac Type Severity Reaction Status Date / Time No Known Allergies Allergy Verified 08/18/21 15:02 Review of Systems Review of Systems: Constitutional : No Weight loss, No Fever, No Chills ENT/Mouth : No sore throat, No Rhinorrhea Eyes: No Swelling, No Redness Cardiovascular : No Chest Pain, No SOB, NoEdema Respiratory : No Cough, No Sputum, No Wheezing Gastrointestinal : Positive Nausea, Positive Vomiting, positive Diarrhea, positive abdominal Pain, No Hematochezia, No Melena Genitourinary : No Dysuria, No Urinary Frequency, No Hematuria, No Urgency Musculoskeletal : No joint pain, No Myalgias, No Joint Swelling Skin : No Skin Lesions, No rash Neuro : No Weakness, No Numbness, No Dizziness, No Headache Psych : No Anxiety/Panic, No Depression Heme/Lymph: No Bruising, No Lymphadenopathy Endocrine : No Polyuria, No Polydipsia All other systems reviewed and are negative. Gastrointestinal: Gastrointestinal: Reports nausea PMFSH Past Medical History Medical History (Updated 10/15/21 @ 10:05 by Molly Self DO) Anemia Anxiety GERD (gastroesophageal reflux disease) Leukopenia Physical exam Right knee pain Uterine fibroid Surgical History H/O myomectomy History of section Hx of tubal ligation Family History Family History Father Medical history unknown Mother Stroke Maternal Grandmother Diabetes Hypertension Paternal Grandmother Breast cancer Throat cancer Son In good health Social History Social History Housing: Apartment Alcohol intake: current Alcohol intake frequency: a few times a month Alcohol type: wine and hard liquor Patient Tobacco Use Status: Never used Tobacco e-Cigarette/Vaping Use: Never Used Second Hand Smoke Exposure: No Use of substances other than those prescribed or required for medical reasons: No Advance Directives: No Advance Directives Information Provided: No Patient : No service: No Current occupational status: unemployed 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 Oriented X3. No acute distress. Eyes: Pupils equal, round and reactive to light. ENT: Pharynx mildly dry MM Neck: Normal inspection. Neck supple. CVS: Normal heart rate and rhythm. Pulses normal. Respiratory: No respiratory distress. Breath sounds normal. Abdomen: Soft and mild ttp in epigastric area no rebound + Corral's sign Skin: Skin warm and dry. Normal skin color. Normal skin turgor. Extremities: No lower extremity edema. No calf ttp Neuro: Oriented X 3. No motor deficit. No sensory deficit. Course Course Course Narrative: tolerating PO. labs and US negative, negative UPT MDM - Nausea/Vomiting/Diarrhea MDM Narrative Medical decision making narrative: 31 yo female with no sig PMH here with c/o abdominal pain mostly epigastric and RUQ here with c/o n/v/d since Wednesday at this time will obtain labs, UA, UPT and US of GB - IVF and supportive medications ordered. Denies sick contacts, travel, food exposures or recent antbiotic use. Dispo per results and clinical improvement. Lab Data Result diagrams: 10/15/21 07:19 10/15/21 07:19 Labs: Lab Results 10/15/21 10/15/21 10/15/21 Range/Units 07:19 07:19 07:19 WBC 9.2 (4.8-10.8) X10*3/uL RBC 4.45 (4.20-5.50) X10*6/uL Hgb 12.9 (12.0-16.0) g/dl Hct 38.7 (37.0-47.0) % MCV 87.0 (80.0-98.0) fL MCH 29.0 (27.0-33.0) pg MCHC 33.3 (31.0-35.0) g/dl RDW 11.8 (11.0-16.0) % Plt Count 223 (160-400) X10*3/uL MPV Not Reportable Immature Gran % (Auto) 0.2 (0.0-0.4) % Neut % (Auto) 93.8 H (45-73) % Lymph % (Auto) 2.2 L (20-40) % [place] % (Auto) 3.6 (2-11) % Eos % (Auto) 0.1 (0-4) % Baso % (Auto) 0.1 (0-2) % Lymph # (Auto) 0.2 L (1.2-4.9) X10*3/uL [place] # (Auto) 0.3 (0.1-1.2) X10*3/uL Eos # (Auto) 0.0 (0.0-0.4) X10*3/uL Baso # (Auto) 0.0 (0.0-0.2) X10*3/uL Abs Immat Gran (auto) 0.02 (0.00-0.03) X10*3/uL Absolute Neuts (auto) 8.6 H (2.0-8.3) x10*3/uL Absolute Nucleated RBC 0.000 (0.0-0.012) X10*3/uL Nucleated RBC % (auto) 0.0 (0.0-0.2) /100WBC Smear Tech's Comments VERIFIED Sodium 138 (135-145) mmol/L Potassium 4.7 (3.3-5.1) mmol/L Chloride 106 (96-108) mmol/L Carbon Dioxide 21 L (22-29) mmol/L Anion Gap 16 (12-20) BUN 14 (9-16) mg/dL Creatinine 0.70 (0.5-1.4) mg/dL Estim Creat Clear Calc 106.1 Estimated GFR > 60 Random Glucose 117 H (60-115) mg/dL Calcium 9.1 (8.4-10.2) mg/dL Total Bilirubin 1.0 (0.0-1.0) mg/dL Direct Bilirubin 0.4 (0.0-0.5) mg/dL AST 19 (5-31) U/L ALT 16 (0-31) U/L Alkaline Phosphatase 81 (39-117) U/L Total Protein 8.0 (6.5-8.0) g/dL Albumin 4.9 (3.5-5.0) g/dL Lipase 9 (8-78) U/L Urine Color YELLOW Urine Appearance HAZY Urine pH 6.0 (5.0-8.0) Ur Specific [place] >= 1.030 H (1.005-1.025) Urine Protein NEG (NEG-TRACE) MG/DL Urine Glucose (UA) NEG (NEG) MG/DL Urine Ketones NEG (NEG) MG/DL Urine Blood NEG (NEG) Urine Nitrite NEG (NEG) Ur Leukocyte Esterase NEG (NEG) Urine RBC 0 (0) /HPF Urine WBC 0-2 (0-4) /HPF Ur Squamous Epith Cells 4+ /LPF Urine Bacteria TRACE /LPF Urine Mucus 1+ /LPF Urine Test (NEGATIVE) 10/15/21 Range/Units 08:17 WBC (4.8-10.8) X10*3/uL RBC (4.20-5.50) X10*6/uL Hgb (12.0-16.0) g/dl Hct (37.0-47.0) % MCV (80.0-98.0) fL MCH (27.0-33.0) pg MCHC (31.0-35.0) g/dl RDW (11.0-16.0) % Plt Count (160-400) X10*3/uL MPV Immature Gran % (Auto) (0.0-0.4) % Neut % (Auto) (45-73) % Lymph % (Auto) (20-40) % [place] % (Auto) (2-11) % Eos % (Auto) (0-4) % Baso % (Auto) (0-2) % Lymph # (Auto) (1.2-4.9) X10*3/uL [place] # (Auto) (0.1-1.2) X10*3/uL Eos # (Auto) (0.0-0.4) X10*3/uL Baso # (Auto) (0.0-0.2) X10*3/uL Abs Immat Gran (auto) (0.00-0.03) X10*3/uL Absolute Neuts (auto) (2.0-8.3) x10*3/uL Absolute Nucleated RBC (0.0-0.012) X10*3/uL Nucleated RBC % (auto) (0.0-0.2) /100WBC Smear Tech's Comments Sodium (135-145) mmol/L Potassium (3.3-5.1) mmol/L Chloride (96-108) mmol/L Carbon Dioxide (22-29) mmol/L Anion Gap (12-20) BUN (9-16) mg/dL Creatinine (0.5-1.4) mg/dL Estim Creat Clear Calc Estimated GFR Random Glucose (60-115) mg/dL Calcium (8.4-10.2) mg/dL Total Bilirubin (0.0-1.0) mg/dL Direct Bilirubin (0.0-0.5) mg/dL AST (5-31) U/L ALT (0-31) U/L Alkaline Phosphatase (39-117) U/L Total Protein (6.5-8.0) g/dL Albumin (3.5-5.0) g/dL Lipase (8-78) U/L Urine Color Urine Appearance Urine pH (5.0-8.0) Ur Specific [place] (1.005-1.025) Urine Protein (NEG-TRACE) MG/DL Urine Glucose (UA) (NEG) MG/DL Urine Ketones (NEG) MG/DL Urine Blood (NEG) Urine Nitrite (NEG) Ur Leukocyte Esterase (NEG) Urine RBC (0) /HPF Urine WBC (0-4) /HPF Ur Squamous Epith Cells /LPF Urine Bacteria /LPF Urine Mucus /LPF Urine Test NEGATIVE (NEGATIVE) Discharge Plan Discharge Clinical Impression: Vomiting Qualifiers: Vomiting type: unspecified Nausea presence: with nausea Qualified Code(s): R11.2 - Nausea with vomiting, unspecified Diarrhea Qualifiers: Diarrhea type: unspecified type Qualified Code(s): R19.7 - Diarrhea, unspecified Patient Disposition: Home, Self-Care Instructions: Acute Nausea and Vomiting (ED), Acute Diarrhea (ED) Additional Instructions: return to ED for any worsening symptoms or concerns labs and US negative bland diet for 3 days, avoid dairy for 3 days (yogurt is okay) no ice cream, milk, cheese Prescriptions: New ondansetron 4 mg tablet,disintegrating 4 mg PO Q8H PRN (Reason: nausea and vomiting) Qty: 20 0RF No Action buspirone 7.5 mg tablet 7.5 mg PO BID 90 Days Qty: 180 0RF cyclobenzaprine 5 mg tablet 5 mg PO BID Stand Alone Forms: Work/School Release
[2021-10-15 08:29] LABS: UPreg QC Valid YES; Urine Pregnancy NEGATIVE (NEGATIVE)
[2021-10-15 08:31] LABS: Lipase 9 U/L (8-78)
[2021-10-15] MEDS: Ketorolac Tromethamine 15 MG/ML VIAL IVPUSH (08:32)
[2021-10-15] MEDS: 0.9 % Sodium Chloride 1,000 ML 999 ML IV (08:32)
[2021-10-15] MEDS: Famotidine/PF 20 MG/2 ML VIAL IVPUSH (08:33)
[2021-10-15] MEDS: ondansetron HCL 4 MG/2 ML VIAL IVPUSH (08:33)
--- NOTE | 2021-10-15 08:45 | PC.NURSE ---
Patient arrives complaining of abdominal pain, nausea, vomiting, and diarrhea. Reports improvement when laying on stomach. Abdomen soft and non tender. Skin PWD. Labs drawn in waiting room. Established IV and medicated with zofran, famotidine, toradol, and hung NS 1l. Will continue to monitor.
--- NOTE | 2021-10-15 09:53 | PC.NURSE ---
Sophie stuart given to patient by Dr. Self for PO challenge.
[2021-10-15 10:00] VITALS: BP 97/50; PULSE 90; RESP 16; O2SAT 98
== END 2021-10-15 10:42 | disposition home or self-care (01) ==
PROVIDERS: Emergency Provider Emergency Medicine; PCP Internal Medicine
DX: R11.2 Nausea with vomiting, unspecified (principal); R19.7 Diarrhea, unspecified; R10.11 Right upper quadrant pain; Z79.899 Other long term (current) drug therapy
CPT/HCPCS: 36415; 76705; 80048; 80076; 81001; 81025; 83690; 85025; 96361; 96374; 96375; 99284; 99285; J1885; J2405

== ENCOUNTER 2023-05-17 08:03 | Outpatient (AMB) | payer OTHER, SELFPAY ==
--- NOTE | 2023-05-17 08:05 | A.OFFPC_ITS ---
Vital Signs 05/17/23 08:07 Height 5 ft 1 in Weight 137 lb BMI 25.9 BP 110/70 Blood Pressure Location Lt brachial Position Sitting Intake Visit Reasons: PE Intake Note: Patient here for a physical exam Astrochemist Required: No Accompanied by: Self / Same As Patient Allergies No Known Allergies Allergy (Verified 05/17/23 08:16) Medication List - Last Reconciled 05/17/23 by Flora Allen MD No Known Home Meds Tobacco use date assessed: 05/17/23 Dental Screening Dental Screen Date: 05/17/23 Did you have a dental visit in the last 12 months?: Yes Did you have a dental problem in the last 6 months where you did not have access to dental care?: No Was dental information given to patient?: Patient has dentist HPI HPI Comments History of Present Illness Details This is a 32-year-old female that comes for her physical exam. Last Pap smear was 2021 and was normal. Has a lump in right thigh that has been bothering her. [facility] Medical History (Updated 05/17/23 @ 08:31 by Flora Allen MD) GERD (gastroesophageal reflux disease) Leukopenia Physical exam Right knee pain Uterine fibroid Anemia Anxiety Surgical History Hx of tubal ligation History of section H/O myomectomy Family History Father Medical history unknown Mother Stroke Maternal Grandmother Diabetes Hypertension Paternal Grandmother Breast cancer Throat cancer Son In good health Social History Housing: Apartment Alcohol intake: current Alcohol intake frequency: a few times a month Alcohol type: wine and hard liquor Patient Tobacco Use Status: Never used Tobacco e-Cigarette/Vaping Use: Never Used Second Hand Smoke Exposure: No service: No Current occupational status: employed 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 1. Little interest or pleasure in doing things: not at all 2. Feeling down, depressed, or hopeless: not at all 3. Trouble falling or staying asleep, or sleeping too much: not at all 4. Feeling tired or having little energy: not at all 5. Poor appetite or overeating: not at all 6. Feeling bad about yourself - or that you are a failure or have let yourself or your family down: not at all 7. Trouble concentrating on things, such as reading the newspaper or watching television: not at all 8. Moving or speaking so slowly that other people could have noticed. Or the opposite - being so fidgety or restless that you have been moving around a lot m ore than usual: not at all 9. Thoughts that you would be better off or of hurting yourself in some way: not at all Total score: 0 Depression Screening Interpretation: Negative Depression Screening Done: Yes 29160 - PHQ-9 Billing: Yes Source: Developed by Drs. Esequiel Greenfield, Marilee Lopez, Yosef Kang and colleagues, with an educational mary from [employer]. Thrive Questionnaire Date Thrive assessed: 05/17/23 I am a: Patient What is your living situation today?: I have a steady place to live Within the past 12 months, did the food you bought not last and you didn't have the money to get more?: Never true Within the past 12 months, did you worry whether your food would run out before you got money to buy more?: Never true Do you have trouble paying for medicines?: No Do you have trouble getting transportation to medical appointments?: No Do you have trouble paying your heating and electricity bill?: No Do you have trouble taking care of your child, family member or friend?: No Do you have trouble with day-to-day activities such as bathing, preparing meals, shopping, managing finances, etc.?: No Are you currently unemployed and looking for a job?: No Are you interested in more education?: No Please select the resources that you would like help with: None Currently or been in a relationship where the following occur: no concerns reported THRIVE Score: 0 AUDIT C Alcohol Use Questionnaire (AUDIT-C) 1. How often do you have a drink containing alcohol?: Monthly or less 2. How many drinks containing alcohol do you have on a typical day when you are drinking?: 1 or 2 3. How often do you have six or more drinks on one occasion?: Never Total Score: 1 Score Reviewed/Action Taken: No ANTIONETTE-7 AMB Questionnaire ANTIONETTE-7 Date ANTIONETTE - 7 assessed: 05/17/23 Feeling nervous, anxious, or on edge: 0 = Not at all Not being able to stop or control worryin = Not at all Worrying too much about different things: 0 = Not at all Trouble relaxin = Not at all Being so restless that it is hard to sit still: 0 = Not at all Becoming easily annoyed or irritable: 0 = Not at all Feeling afraid as if something awful might happen: 0 = Not at all Total ANTIONETTE-7 score (0-4 normal; 5-9 mild; 10-14 moderate; 15-21 severe): 0 Source: Developed by Drs. Esequiel Greenfield, Marilee Lopez, Yosef Kang and colleagues, with an educational mary from [employer]. ANTIONETTE-7 Assessment Billing ANTIONETTE-7 Assessment Tool: ANTIONETTE-7 Assessment 33440 Review of Systems Const All systems reviewed & are unremarkable except as noted in HPI and below Eyes Reports no additional complaints, Denies change in vision and Denies other visual disturbances Card Denies chest pain at rest, Denies chest pain with activity, Denies edema, Denies irregular heart rhythm, Denies claudication, Denies dyspnea, Denies dyspnea on exertion, Denies orthopnea, Denies paroxysmal nocturnal dyspnea and Denies slow heart rate Resp Denies cough, Denies dyspnea and Denies dyspnea on exertion GI Denies abdominal pain, Denies change in bowel habits, Denies excessive flatus, Denies nausea and Denies vomiting Denies urinary incontinence, Denies urinary hesitancy and Denies urinary urgency Musc Denies abnormal gait, Denies atrophy, Denies deformity and Denies limited range of motion Skin/Breast Denies bleeding lesions, Denies changing lesions and Denies rash Neuro Denies abnormal gait, Denies behavioral changes, Denies confusion and Denies lack of coordination Psych Denies behavioral changes and Denies confusion Physical exam (Primary Care) Vital Signs: Last Vital Signs BP 110/70 05/17/23 08:07 BMI result Body Mass Index 25.9 Tobacco/Smoking Status: Tobacco use Status Tobacco use date assessed 05/17/23 05/17/23 08:09 Patient Tobacco Use Status Never used Tobacco 05/17/23 08:09 e-Cigarette/Vaping Use Never Used 05/17/23 08:09 PHQ-9: PHQ-9 Score PHQ-9: Total score 0 05/17/23 08:09 Depression Screening Interpretation: Negative Thrive Assessment: Date of Thrive Assessment Date Thrive assessed 05/17/23 05/17/23 08:09 Currently or been in a relationship where the following occur: no concerns reported Const General: No confusion Orientation/consciousness: patient oriented x3 and No confusion HENMT Head: Yes normal to inspection, Yes normocephalic and Yes atraumatic Ears: external ears normal Eyes General: appearance normal, both eyes and all related structures Eyelids: Yes eyelids normal Conjunctivae: conjunctivae normal Neck Neck: Yes normal visual inspection and Yes supple Resp Effort & Inspection: normal respiratory effort Auscultation: clear to auscultation bilaterally Cardio Jugular venous distension: no JVD Rate: regular rate Rhythm: regular rhythm Heart sounds: S1 normal heart sound present and S2 normal heart sound present GI Inspection: Yes normal to inspection Palpation (GI): Soft to palpation and nontender Auscultation: normal bowel sounds Skin Other: lump in left leg Neuro General: patient oriented x3, no focal motor deficits and No confusion Extrem General: Yes full ROM Psych Appearance: grossly normal Office Procedures Flu Questionnaire Does the patient have a severe egg allergy?: No Immunizations flu vacc [id number] 6mos up(PF) 60 mcg(15 mcgx4)/0.5 mL IM syringe Performing Provider: Flora Allen MD [facility] Documented (not given) by: FARZANA Marroquin on 05/17/23 08:10 Reason Not Given: Patient Refused Assessment and Plan Assessment & Plan (1) Physical exam: Code(s): Z00.00 - Encounter for general adult medical examination without abnormal findings Plan: Repeat in a year. Orders: Orders Influenza [id number] Immunization Today Z23 - Encounter for immunization Referrals General Surgery Referral R22.40 - Localized swelling, mass and lump, unspecified lower limb Coding Level of Care Code Est Pt Prev Care 18-39y(41939) Diagnoses Physical exam Z00.00 Additional Codes ANTIONETTE-7 Assessment Billing - ANTIONETTE-7 Assessment Tool: ANTIONETTE-7 Assessment 23841 ([id number]) Time Spent (min) 31
[2023-05-17 08:07] VITALS: BP 110/70; BMI 25.9
== END 2023-05-17 08:26 | disposition home or self-care (01) ==
PROVIDERS: Visit Provider Internal Medicine
DX: Z00.00 Encounter for general adult medical examination without abnormal findings (principal)
CPT/HCPCS: 99395

== ENCOUNTER 2023-06-20 00:44 | Emergency (ER) | payer OTHER, SELFPAY ==
[2023-06-20 00:58] VITALS: BP 111/76; PULSE 107; RESP 18; TEMP 37.3; O2SAT 96; BMI 25.8
[2023-06-20 01:20] VITALS: BP 102/68; PULSE 98; RESP 17; TEMP 37.2; O2SAT 98
--- NOTE | 2023-06-20 01:26 | PC.NURSE ---
pt from home reporting abdominal pain and n/v/d since this afternoon. pt denies chest pain and shortness of breath. pt respirations even and unlabored, a&ox4. 20G placed in right ac, labs obtained and warm blanket given for comfort.
[2023-06-20 01:27] LABS: COVID-19 Test Negative (Negative); IDNOW Serial# 152EDE1D
[2023-06-20 01:28] LABS: MANUAL DIFF FLAG NO
[2023-06-20 01:29] LABS: Basophils Percent Auto 0.2 % (0-2); Eosinophils Absolute Auto 0.1 X10*3/uL (0.0-0.4); Eosinophils Percent Auto 0.8 % (0-4); Hemoglobin 13.8 g/dl (12.0-16.0); Imm Gran Abs Auto 0.03 X10*3/uL (0.00-0.03); Imm Gran Pct Auto 0.3 % (0.0-0.4); Lymphocytes Absolute Auto 0.5 X10*3/uL (1.2-4.9); Lymphocytes Percent Auto 4.3 % (20-40); Mean Corpuscular HGB Conc 33.7 g/dl (31.0-35.0); Mean Corpuscular Hemoglobin 29.9 pg (27.0-33.0); Mean Corpuscular Volume 88.7 fL (80.0-98.0); Mean Platelet Volume 9.4 fL (9.4-12.3); Monocytes Absolute Auto 0.7 X10*3/uL (0.1-1.2); Monocytes Percent Auto 5.7 % (2-11); Neutrophils Absolute Auto 10.4 x10*3/uL (2.0-8.3); Neutrophils Percent Auto 88.7 % (45-73); Platelet Count 236 X10*3/uL (160-400); Red Blood Count 4.62 X10*6/uL (4.20-5.50); Red Cell Distribution Width 12.8 % (11.0-16.0); White Blood Count 11.7 X10*3/uL (4.8-10.8)
[2023-06-20 01:30] LABS: IDNOW Serial# 08D9AD1C; Influenza A Negative (Negative); Influenza B2 Negative (Negative)
[2023-06-20 01:49] LABS: Alanine Aminotransferase 16 U/L (0-31); Albumin Level 4.6 g/dL (3.5-5.0); Alkaline Phosphatase 76 U/L (39-117); Anion Gap 17 (12-20); Aspartate Amino Transferase 18 U/L (5-31); Bilirubin Direct 0.2 mg/dL (0.0-0.5); Bilirubin Total 0.5 mg/dL (0.0-1.0); Blood Urea Nitrogen 16 mg/dL (9-16); Calcium 9.3 mg/dL (8.4-10.2); Carbon Dioxide 18 mmol/L (22-29); Chloride 109 mmol/L (96-108); Creatinine Clr Calc Pharmacy 96.3; Estimated Glomerular Filt Rate > 60; Glucose Random 107 mg/dL (60-115); HCG Quantitative < 2 mIU/mL; Lipase 14 U/L (8-78); Potassium 3.8 mmol/L (3.3-5.1); Sodium 140 mmol/L (135-145); Total Protein 7.9 g/dL (6.5-8.0)
--- NOTE | 2023-06-20 03:18 | ED.NAVMDI ---
HPI - Nausea/Vomiting/Diarrhea General Chief complaint: Abdominal Pain Stated complaint: vomiting Time Seen by Provider: 06/20/23 02:55 Source: patient Mode of arrival: ambulatory Limitations: no limitations History of Present Illness HPI Narrative: Patient comes to the emergency room complaining of nausea vomiting and 1 episode of diarrhea. no chest pain or abdominal pain, no fever or chills. Patient denies being Related Data Previous Rx's Medication Instructions Recorded loperamide 2 mg capsule 2 mg PO Q4H PRN loose stool #10 06/20/23 caps ondansetron HCl 4 mg tablet 4 mg PO Q6H PRN nausea and 06/20/23 vomiting #10 tabs Allergies Allergy/AdvReac Type Severity Reaction Status Date / Time No Known Allergies Allergy Verified 06/20/23 00:58 Review of Systems Review of Systems: Constitutional : No Weight loss, No Fever, No Chills, No Night Sweats, No Fatigue, No Malaise ENT/Mouth : No Hearing loss, No Ear Pain, No Nasal Congestion, No Sinus Pain, No Hoarseness, No sore throat, No Rhinorrhea, No Swallowing Difficulty Eyes: No Eye Pain, No Swelling, No Redness, No Foreign Body, No Discharge, No Vision Changes Cardiovascular : No Chest Pain, No SOB, No Dyspnea on Exertion, No Orthopnea, No Edema, No Palpitations Respiratory : No Cough, No Sputum, No Wheezing, No Smoke Exposure, No Dyspnea Gastrointestinal : Complaining of nausea vomiting, and Diarrhea, No Constipation, No abdominal Pain, No Hematochezia, No Melena Genitourinary : no irregular bleeding, No Dysuria, No Urinary Frequency, No Hematuria, No Urinary Incontinence, No Urgency, No Flank Pain, No Urinary Flow Changes, No Hesitancy Musculoskeletal : No joint pain, No Myalgias, No Joint Swelling Skin : No Skin Lesions, No rash Neuro : No Weakness, No Numbness, No Paresthesias, No Loss of Consciousness, No Dizziness, No Headache Psych : No Anxiety/Panic, No Depression, No SI/HI/AH/VH, No Social Issues, Heme/Lymph: No Bruising, No Bleeding,No Lymphadenopathy Endocrine : No Polyuria, No Polydipsia, No Temperature Intolerance PMFSH Past Medical History Medical History GERD (gastroesophageal reflux disease) Leukopenia Physical exam Right knee pain Uterine fibroid Anemia Anxiety Surgical History Hx of tubal ligation History of section H/O myomectomy Family History Family History Father Medical history unknown Mother Stroke Maternal Grandmother Diabetes Hypertension Paternal Grandmother Breast cancer Throat cancer Son In good health Social History Social History Housing: Apartment Alcohol intake: current Alcohol intake frequency: a few times a month Alcohol type: wine and hard liquor Patient Tobacco Use Status: Never used Tobacco Smoked in Last 30 Days: No e-Cigarette/Vaping Use: Never Used Second Hand Smoke Exposure: No Use of substances other than those prescribed or required for medical reasons: No Advance Directives: No Advance Directives Information Provided: No Patient : No service: No Current occupational status: employed 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 Oriented X3. No acute distress. Eyes: Pupils equal, round and reactive to light. ENT: Pharynx normal. Neck: Normal inspection. Neck supple. No lymph nodes noted. No crepitus CVS: Normal heart rate and rhythm. Pulses normal. Normal S1 and S2 Respiratory: No respiratory distress. Breath sounds normal. No Wheezing. No rales Abdomen: Soft and nontender. No rigidity. No distention. Skin: Skin warm and dry. Normal skin color. Normal skin turgor. Extremities: No lower extremity edema. No Lacerations. No Rash Neuro: Oriented X 3. No motor deficit. No sensory deficit. Moving all extremities. No slurred speech. CN 2 through 12 grossly intact Psych: calm, cooperative, normal affect Medical Decision Making Medical Decision Making MDM Narrative: -my interpretation of labs: White blood cell count 11.7, likely reactive glucose normal limits, LFTs lipase normal, hCG negative. Serology negative for COVID and flu. -patient denies any sick contacts, patient likely having nausea vomiting from something that she would. Likely having gastritis versus gastroenteritis versus viral syndrome. -patient receiving IV fluids and Zofran in 1 dose of loperamide Differential Diagnosis Differential Diagnoses: The differential diagnosis associated with the presentation includes (As above) Lab Data [facility] Lab Attestation statement: I reviewed the patient's lab results. 06/20/23 01:24 06/20/23 01:24 Labs: Lab Results 06/20/23 06/20/23 Range/Units 01:05 01:24 WBC 11.7 H (4.8-10.8) X10*3/uL RBC 4.62 (4.20-5.50) X10*6/uL Hgb 13.8 (12.0-16.0) g/dl Hct 41.0 (37.0-47.0) % MCV 88.7 (80.0-98.0) fL MCH 29.9 (27.0-33.0) pg MCHC 33.7 (31.0-35.0) g/dl RDW 12.8 (11.0-16.0) % Plt Count 236 (160-400) X10*3/uL MPV 9.4 (9.4-12.3) fL Immature Gran % (Auto) 0.3 (0.0-0.4) % Neut % (Auto) 88.7 H (45-73) % Lymph % (Auto) 4.3 L (20-40) % Greenwood % (Auto) 5.7 (2-11) % Eos % (Auto) 0.8 (0-4) % Baso % (Auto) 0.2 (0-2) % Lymph # (Auto) 0.5 L (1.2-4.9) X10*3/uL Greenwood # (Auto) 0.7 (0.1-1.2) X10*3/uL Eos # (Auto) 0.1 (0.0-0.4) X10*3/uL Baso # (Auto) 0.0 (0.0-0.2) X10*3/uL Abs Immat Gran (auto) 0.03 (0.00-0.03) X10*3/uL Absolute Neuts (auto) 10.4 H (2.0-8.3) x10*3/uL Absolute Nucleated RBC 0.000 (0.0-0.012) X10*3/uL Nucleated RBC % (auto) 0.0 (0.0-0.2) /100WBC Sodium 140 (135-145) mmol/L Potassium 3.8 (3.3-5.1) mmol/L Chloride 109 H (96-108) mmol/L Carbon Dioxide 18 L (22-29) mmol/L Anion Gap 17 (12-20) BUN 16 (9-16) mg/dL Creatinine 0.72 (0.5-1.4) mg/dL Estim Creat Clear Calc 96.3 Estimated GFR > 60 Random Glucose 107 (60-115) mg/dL Calcium 9.3 (8.4-10.2) mg/dL Total Bilirubin 0.5 (0.0-1.0) mg/dL Direct Bilirubin 0.2 (0.0-0.5) mg/dL AST 18 (5-31) U/L ALT 16 (0-31) U/L Alkaline Phosphatase 76 (39-117) U/L Total Protein 7.9 (6.5-8.0) g/dL Albumin 4.6 (3.5-5.0) g/dL Lipase 14 (8-78) U/L Beta HCG, Quant < 2 mIU/mL COVID-19 ([facility]) Negative (Negative) COVID-19 Clin Com See Note Influenza Type A ([facility]) Negative (Negative) Influenza Type B ([facility]BY) Negative (Negative) Influenza A & B Note See Note Critical Care Time Critical Care Time Critical Care Time: Yes Total Critical Care Time: 30 Attestation: I have personally provided critical care time. Time includes review of lab data, radiology results, discussion with consultants, and monitoring for potential decompensation. Intervention performed as documented. Discharge Plan Discharge Clinical Impression: Nausea vomiting and diarrhea Patient Disposition: Home, Self-Care Instructions: Acute Nausea and Vomiting (ED), Acute Diarrhea (ED) Additional Instructions: Please follow-up with your primary care physician tomorrow. If you have any worsening or new symptoms, please return to the emergency room or call 911 Prescriptions: New loperamide 2 mg capsule 2 mg PO Q4H PRN (Reason: loose stool) Qty: 10 0RF Rx Instructions: administer after each loose stool until symptoms controlled; do not exceed 8 mg per 24 hrs ondansetron HCl 4 mg tablet 4 mg PO Q6H PRN (Reason: nausea and vomiting) Qty: 10 0RF
[2023-06-20 03:20] VITALS: BP 107/67; PULSE 92; RESP 14; TEMP 36.7; O2SAT 97
[2023-06-20] MEDS: ondansetron HCL 4 MG/2 ML VIAL IVPUSH (03:40)
[2023-06-20] MEDS: 0.9 % Sodium Chloride 1,000 ML 999 ML IVCONT (03:40)
[2023-06-20] MEDS: Loperamide HCl 2 MG CAPSULE 4 MG PO (03:40)
--- NOTE | 2023-06-20 03:42 | PC.NURSE ---
pt medicated per jun, pt tolerated well with water
[2023-06-20 05:44] VITALS: BP 96/56; PULSE 96; RESP 15; TEMP 37.1; O2SAT 98
--- NOTE | 2023-06-20 05:44 | PC.NURSE ---
pt given water at this time, pt tolerated well.
[2023-06-20 06:53] VITALS: BP 96/56; PULSE 96; RESP 15; TEMP 37.1; O2SAT 98
== END 2023-06-20 06:54 | disposition home or self-care (01) ==
PROVIDERS: Emergency Provider Emergency Medicine; PCP Internal Medicine
DX: R11.2 Nausea with vomiting, unspecified (principal); R19.7 Diarrhea, unspecified; Z11.52 Encounter for screening for COVID-19
CPT/HCPCS: 36415; 80053; 82248; 83690; 84702; 85025; 87502; 87635; 96361; 96374; 99284; 99285; J2405

== ENCOUNTER 2024-05-18 07:37 | Outpatient (AMB) | payer OTHER, SELFPAY ==
--- OUTSIDE RECORDS SUMMARY | 2024-05-18 07:40 | XMS_ITS | Clinical Summary ---
Author Organization [address] [address] Phone Care Team Providers Care Drying Room Supervisor Name Role Phone No, Pcp (Do Not Change Name) Primary Care Provid er Unavailable Allergies No known active allergies Medications No known medications Social History Tobacco Use Types Packs/Day Years Used Date Smoking Tobacco: Never Assessed Comments Unknown Sex and Gender Information Value Date Recorded Sex Assigned at Not on file Legal Sex Female 3:25 PM EST Gender Identity Not on file Sexual Orientation Not on file Last Filed Vital Signs Vital Sign Reading Time Taken Comments Blood Pressure 112/69 05/18/2015 8:24 PM EST Pulse 70 05/18/2015 8:24 PM EST Temperature 37.1 ??C (98.7 ??F) 05/18/2015 8:24 PM ES T Respiratory Rate 18 05/18/2015 8:24 PM EST Oxygen Saturation 100% 05/18/2015 8:24 PM EST Inhaled Oxygen Concentration - - Weight 54.4 kg (120 lb) 05/18/2015 7:14 PM EST Height - - Body Mass Index - - Plan of Treatment Health Maintenance Due Date Last Done Comments HIV screening 2005 Hepatitis C screening 2010 Tetanus adult (Td q 10,TDAP once) 2012 Cervical cancer screening 2013 Influenza vaccine 11/04/2023 Covid-19 vaccine series (2023- season) 2023 RSV Discussion (1 - 1-dose 7 5+ series) 09/01/2067 Meningococcal Vaccine Aged Out No aristeo tae eligible based on patient's age to complete this topic Pneumococcal Vaccine Aged Out No long er eligible based on patient's age to complete this topic Insurance UMR [id number] MEDICAID UMR [id number] MEDICAID UMR [id number] MEDICAID U[employer] [id number] MEDICAID Care Teams Drying Room Supervisor Relationship Specialty Start Date End Date No, Pcp (Do Not Change Name) PCP - General 05/18/15
--- OUTSIDE RECORDS SUMMARY | 2024-05-18 07:40 | XMS_ITS | Clinical Summary ---
[facility] Organization [facility] Address [address] [place] [address] Care Team Providers Care Airways Operations Specialist Name Role Phone Flora Allen MD Primary Care Provider [phone] Surgical History Surgery Date Site/Laterality Comments SECTION PROCEDURE: [place] DELIVERY ONLY OTHER SURGICAL HISTORY 10/2019 PROCEDURE: ---- OTHER ----; COMMENT: fibroid removed - [facility] Medical History Medical History Date Comments Anemia 05/06/2012 DX:Anemia; COMME NT: H & H 10.6 31.4 Chlamydia contact, treated 06/07/2017 DX:Ch lamydia contact, treated Bacterial vaginosis 03/31/2016 DX:Bacterial vaginosis; COMMENT: 04/03/15 Yeast infection 03/31/2016 DX:Yeast infecti on; COMMENT: 06/24/12 Vitamin D insufficiency 12/08/2012 DX:Vitam in D insufficiency; COMMENT: Vitamin D = 22 Family History Medical History Relation Name Comments Breast cancer Maternal Grandfather Diabetes Maternal Grandmother Hypertension Mother Diabetes Paternal Grandfather Diabetes Paternal Grandmother Relation Name Status Comments Maternal Grandfather Maternal Grandmother Mother Paternal Grandfather Paternal Grandmother Social History Tobacco Use Types Packs/Day Years Used Date Smoking Tobacco: Never Smokeless Tobacco: Never Alcohol Use Standard Drinks/Week Comments No 0 (1 standard drink = 0.6 oz pur e alcohol) Comments Unknown Sex and Gender Information Value Date Recorded Sex Assigned at Not on file Legal Sex Female 4:38 AM EST Gender Identity Not on file Sexual Orientation Not on file Obstetrics History Plan of Treatment Health Maintenance Due Date Last Done Comments Hepatitis B Vaccines (1 of 3 - 19+ 3-dose series) 09/01/2011 Cervical Cancer Screening: P ap Smear 2013 Depression Screening 03/08/2022 HIV Screening 03/08/2022 Hepatitis C Screening 03/08/2022 Social Influencers of Health Screening 03/08/2022 DTaP,Tdap,and Td Vaccines (2 - Td or Tdap) 06/24/2022 06/24/2012 COVID-19 Vaccine (1 - 2023-2 5 season) 2023 Influenza Vaccine (#1) 2023 HIB Vaccines Aged Out No longer eligi ble based on patient's age to complete this topic HPV Vaccines Aged Out No longer eligi ble based on patient's age to complete this topic Hepatitis A Vaccines Aged Out No long er eligible based on patient's age to complete this topic IPV Vaccines Aged Out No longer eligi ble based on patient's age to complete this topic MMR Vaccines Aged Out No longer eligi ble based on patient's age to complete this topic Meningococcal ACWY Vaccine Aged Out N o longer eligible based on patient's age to complete this topic Pneumococcal Vaccine: Pediat rics (0 to 5 Years) and At-Risk Patients (6 to 64 Years) Aged Out No longer eligi ble based on patient's age to complete this topic RSV Immunization Patients Un thad 20 months Aged Out No longer eligible b ased on patient's age to complete this topic Varicella Vaccines Aged Out No longer eligible based on patient's age to complete this topic Care Teams Airways Operations Specialist Relationship Specialty Start Date End Date Flora Allen MD [address] [place] [address] , [address] [facility] D[facility] PCP - General Internal Medicine 04/17/19
--- NOTE | 2024-05-18 07:41 | A.OFFPC_ITS ---
Vital Signs 05/18/24 07:43 Height 5 ft 1 in Weight 148 lb BMI 28.0 BP 112/70 Blood Pressure Location Lt brachial Position Sitting Intake Visit Reasons: annual exam Intake Note: Patient here for an annual physical exam Commercial Technician Required: Yes Commercial Technician Language: Insulation Packer Name: Flora Allen MD Information Interpreted: non-clinical & clinical Accompanied by: Self / Same As Patient Allergies No Known Allergies Allergy (Verified 05/18/24 07:50) Medication List - Last Reconciled 05/18/24 by Flora Allen MD No Known Home Meds Tobacco use date assessed: 05/18/24 Dental Screening Dental Screen Date: 05/18/24 Did you have a dental visit in the last 12 months?: Yes Did you have a dental problem in the last 6 months where you did not have access to dental care?: No Was dental information given to patient?: Patient has dentist HPI HPI Comments History of Present Illness Details The patient is a 33-year-old female presenting for her physical exam with lumbar pain. She reports that the pain is localized to the lumbar region and occurs when she does not lie down, resulting in stiffness and potential hospitalization if unresolved. She has a history of lumbar pain requiring pr evious medical management but the effectiveness was not detailed. The patient also requires a gynecological follow-up appointment due to procedural changes that have occurred at her previous clinic. She last had a Papanicolaou test in 2020 at the [facility], which returned negative. She mentions navigating new administrative processes to continue her care. - Tetanus vaccine administered in 2020, next due in 2030. - Last Papanicolaou test in 2020, negati ve result. - Patient drinks alcohol infrequently; h as not smoked. - Educational discussion about challenge s with weight management and metabolism with advancing age. [facility] Medical History GERD (gastroesophageal reflux disease) Leukopenia Physical exam Right knee pain Uterine fibroid Anemia Anxiety Surgical History Hx of tubal ligation History of section H/O myomectomy Family History Father Medical history unknown Mother Stroke Maternal Grandmother Diabetes Hypertension Paternal Grandmother Breast cancer Throat cancer Son In good health Social History Housing: Apartment Alcohol intake: current Alcohol intake frequency: a few times a month Alcohol type: wine and hard liquor Patient Tobacco Use Status: Never used Tobacco e-Cigarette/Vaping Use: Never Used Second Hand Smoke Exposure: No service: No Current occupational status: employed 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 1. Little interest or pleasure in doing things: not at all 2. Feeling down, depressed, or hopeless: not at all 3. Trouble falling or staying asleep, or sleeping too much: not at all 4. Feeling tired or having little energy: not at all 5. Poor appetite or overeating: not at all 6. Feeling bad about yourself - or that you are a failure or have let yourself or your family down: not at all 7. Trouble concentrating on things, such as reading the newspaper or watching television: not at all 8. Moving or speaking so slowly that other people could have noticed. Or the opposite - being so fidgety or restless that you have been moving around a lot more than usual: not at all 9. Thoughts that you would be better off or of hurting yourself in some way: not at all Total score: 0 Depression Screening Interpretation: Negative Depression Screening Done: Yes 87827 - PHQ-9 Billing: Yes Source: Developed by Drs. Esequiel Greenfield, Marilee Lopez, Yosef Kang and colleagues, with an educational mary from [employer]. Thrive Questionnaire Date Thrive assessed: 05/18/24 I am a: Patient What is your living situation today?: I have a steady place to live Within the past 12 months, did the food you bought not last and you didn't have the money to get more?: Never true Within the past 12 months, did you worry whether your food would run out before you got money to buy more?: Never true Do you have trouble paying for medicines?: No Do you have trouble getting transportation to medical appointments?: No Do you have trouble paying your heating and electricity bill?: No Do you have trouble taking care of your child, family member or friend?: No Do you have trouble with day-to-day activities such as bathing, preparing meals, shopping, managing finances, etc.?: No Are you currently unemployed and looking for a job?: No Are you interested in more education?: No Please select the resources that you would like help with: None Currently or been in a relationship where the following occur: No concerns reported THRIVE Score: 0 AUDIT C Alcohol Use Questionnaire (AUDIT-C) 1. How often do you have a drink containing alcohol?: Monthly or less 2. How many drinks containing alcohol do you have on a typical day when you are drinking?: 1 or 2 3. How often do you have six or more drinks on one occasion?: Never Total Score: 1 Score Reviewed/Action Taken: No ANTIONETTE-7 AMB Questionnaire ANTIONETTE-7 Date ANTIONETTE - 7 assessed: 05/18/24 Feeling nervous, anxious, or on edge: 0 = Not at all Not being able to stop or control worryin = Not at all Worrying too much about different things: 0 = Not at all Trouble relaxin = Not at all Being so restless that it is hard to sit still: 0 = Not at all Becoming easily annoyed or irritable: 0 = Not at all Feeling afraid as if something awful might happen: 0 = Not at all Total ANTIONETTE-7 score (0-4 normal; 5-9 mild; 10-14 moderate; 15-21 severe): 0 Source: Developed by Drs. Esequiel Greenfield, Marilee Lopez, Yosef Kang and colleagues, with an educational mary from [employer]. ANTIONETTE-7 Assessment Billing ANTIONETTE-7 Assessment Tool: ANTIONETTE-7 Assessment 59432 Review of Systems Const All systems reviewed & are unremarkable except as noted in HPI and below Eyes Reports no additional complaints, Denies change in vision and Denies other visual disturbances Card Denies chest pain at rest, Denies chest pain with activity, Denies edema, Denies irregular heart rhythm, Denies claudication, Denies dyspnea, Denies dyspnea on exertion, Denies orthopnea, Denies paroxysmal nocturnal dyspnea and Denies slow heart rate Resp Denies cough, Denies dyspnea and Denies dyspnea on exertion GI Denies abdominal pain, Denies change in bowel habits, Denies excessive flatus, Denies nausea and Denies vomiting Physical exam (Primary Care) Vital Signs: Last Vital Signs BP 112/70 05/18/24 07:43 BMI result Body Mass Index 28.0 Tobacco/Smoking Status: Tobacco use Status Tobacco use date assessed 05/17/23 05/16/24 11:55 Patient Tobacco Use Status Never used Tobacco 05/16/24 11:55 e-Cigarette/Vaping Use Never Used 05/16/24 11:55 Depression Screening Interpretation: Negative Thrive Assessment: Date of Thrive Assessment Date Thrive assessed 05/17/23 05/16/24 11:55 Currently or been in a relationship where the following occur: No concerns reported [facility] Head: Yes normal to inspection, Yes normocephalic and Yes atraumatic Ears: external ears normal Eyes General: appearance normal, both eyes and all related structures Eyelids: Yes eyelids normal Conjunctivae: conjunctivae normal Neck Neck: Yes normal visual inspection and Yes supple Resp Effort & Inspection: normal respiratory effort Auscultation: clear to auscultation bilaterally Cardio Jugular venous distension: no JVD Rate: regular rate Rhythm: regular rhythm Heart sounds: S1 normal heart sound present and S2 normal heart sound present GI Inspection: Yes normal to inspection Palpation (GI): Soft to palpation and nontender Auscultation: normal bowel sounds Skin General skin exam: no rashes or lesions noted Neuro General: no focal motor deficits Extrem General: Yes full ROM Psych Appearance: grossly normal Coding Level of Care Code Est Pt Level 3 (82805) Est Pt Prev Care 18-39y(66274) Diagnoses Physical exam Z00.00 Lumbar pain M54.50 Women's annual routine gynecological examination Z01.419 Additional Codes ANTIONETTE-7 Assessment Billing - ANTIONETTE-7 Assessment Tool: ANTIONETTE-7 Assessment 31606 ([id number]) PHQ-9 - 72753 - PHQ-9 Billing: Yes ([id number]) Time Spent (min) 32 Assessment & Plan Assessment & Plan (1) Physical exam: Code(s): Z00.00 - Encounter for general adult medical examination without abnormal f indings Category: Medical (2) Lumbar pain: Code(s): M54.50 - Low back pain, unspecified Category: Medical (3) Women's annual routine gynecological examination: Code(s): Z01.419 - Encounter for gynecological examination (general) (routine) without abnormal findings Category: Medical Plan - Prescribe Flexeril 10 mg for lumbar pain management. - Refer to gynecology for follow-up since the patient's previous care has shifted sites. - Discuss lifestyle modifications for weight management and metabolism issues. Patient was informed and verbally consented to the use of an ambient scribe for clinic note documentation during this visit. During the visit, we discussed the current management of lumbar pain with the use of Flexeril 10 mg. We also reviewed the patient's gynecological health maintenance, noting the need for referral due to administrative changes at her previous clinic. I informed her about the challenges related to weight managem ent as metabolic rates decline with age, emphasizing the importance of maintaining a healthy lifestyle. I addressed the timeline for her tetanus vaccination, confirming that her next dose is due in 2030. Orders: Referrals CENTRAL SCHEDULER Referral Z01.419 - Encounter for gynecological examination (general) (routine) without abnormal findings Medications: New cyclobenzaprine 10 mg PO BEDTIME 30 days PRN 30 tabs 3RF muscle spasm M54.50 - Low back pain, unspecified Patient Instructions: - Take Flexeril 10 mg as prescribed for lumbar pain. - Follow up with gynecology for continued health maintenance and screening. - Maintain efforts in healthy dieting and weight management and monitor any changes. - Schedule tetanus vaccination in 2030 as needed. - Report any changes in pain levels or other health concerns.
[2024-05-18 07:43] VITALS: BP 112/70; BMI 28.0
== END 2024-05-18 08:00 | disposition home or self-care (01) ==
PROVIDERS: PCP Internal Medicine; Visit Provider Internal Medicine
DX: Z00.00 Encounter for general adult medical examination without abnormal findings (principal); M54.50 Low back pain, unspecified

== ENCOUNTER → 2024-05-18 07:37 | Outpatient (BNVA) | payer OTHER, SELFPAY | PROVIDERS: PCP Internal Medicine; Visit Provider Internal Medicine | DX: Z00.01 Encounter for general adult medical examination with abnormal findings (principal); M54.50 Low back pain, unspecified; K21.9 Gastro-esophageal reflux disease without esophagitis; F41.1 Generalized anxiety disorder | CPT/HCPCS: 96127; 99212; 99395 ==

== ENCOUNTER 2024-10-04 14:38 | Outpatient (AMB) | payer OTHER, SELFPAY ==
[2024-10-04 14:43] VITALS: BP 112/66; BMI 28.0
--- NOTE | 2024-10-04 14:43 | MHC.OFFVIS ---
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 Doing well with field nurse case manager concerns: she reports external tear, and subsequent itching and irriatation after her transvaginal probe for an ultrasound US recently done at [place]. Patient reports she has a right ovarian cyst that she feels is uncomfortable. Viewed on her patient portal- right-sided 2.7 anechoic cyst with minimal nodularity. Regular monthly menses. Currently is not sexually active. STI screening offered; she accepts. She tries to eat healthy and stays active with exercise. Family history of breast and ovarian cancer. Last pap smear 2020, negative. [facility] Medical History Ovarian cyst Pelvic pain (~10/04/24) GERD (gastroesophageal reflux disease) Leukopenia Physical exam Right knee pain Uterine fibroid Anemia Anxiety Surgical History Hx of tubal ligation History of section H/O myomectomy Family History Father Medical history unknown Mother Stroke Diabetes Maternal Grandmother Diabetes Hypertension Paternal Grandmother Breast cancer Throat cancer Son In good health Family/Other Ovarian cancer Social History Household Members: Children Housing: House Alcohol intake: current Alcohol intake frequency: a few times a month Alcohol type: wine and hard liquor Patient Tobacco Use Status: Never used Tobacco e-Cigarette/Vaping Use: Never Used Second Hand Smoke Exposure: No service: No Current occupational status: employed 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 Sexual orientation: Straight/Heterosexual Gender identity: Female Cognitive needs: No Hearing needs: No Vision needs: No Female Reproductive History Menstrual Age of Menarche: 14 Duration of menses: 3-5 days Date of last menstrual period: 09/12/24 control method: permanent sterilization Total pregnancies: 2 Full term: 2 Number of Living Children: 2 Date of last pap smear: 08/16/20 History of abnormal pap smear: No Review of Systems Const All systems reviewed & are unremarkable except as noted in HPI and below Reports as per HPI Eyes Reports no additional complaints ENT Reports no additional complaints Card Reports no additional complaints Resp Reports no additional complaints GI Reports as per HPI and Reports no additional complaints Reports as per HPI Musc Reports no additional complaints Skin/Breast Reports as per HPI Neuro Reports no additional complaints Psych Reports no additional complaints Endo Reports no additional complaints Eliot/Lymph Reports no additional complaints Aller/Immun Reports no additional complaints Physical Exam Vital Signs: Last Vital Signs BP 112/66 10/04/24 14:43 BMI result Body Mass Index 28.0 Const General: cooperative, healthy appearing, no acute distress, well developed and alert Orientation/consciousness: patient oriented x3 HEENT Head: Yes normal to inspection Eyes General: appearance normal, both eyes and all related structures Neck Neck: Yes normal visual inspection Thyroid: Thyroid normal Chest Chest palpation & inspection: normal inspection of the chest and other (no puckering, dimpling, peau de orange, retraction, discharge, masses) Breast/axilla inspection: normal inspection of the breasts Breast/axilla palpation: normal palpation of the breasts Resp Effort & Inspection: normal respiratory effort GI Inspection: Yes scar Palpation (GI): Soft to palpation Rectal Exam - Female: deferred General: Yes bladder normal to palpation External Female Exam: normal external appearance ( left side, 3 cm perineal tear/abrasion without signs of infection) Speculum Exam - Vagina: normal appearance of the vagina, normal palpation and normal vaginal discharge Speculum Exam - Cervix: normal appearance of the cervix and normal palpation Bimanual exam- vagina & uterus: normal bimanual exam, normal palpation, uterine size normal, bladder normal to palpation, normal palpation and non-tender Bimanual Exam- Adnexa, other: no masses Skin General skin exam: no rashes or lesions noted Rashes: no rashes Neuro General: patient oriented x3 Cognition (Neuro): normal cognition Extrem General: Yes normal to inspection Psych Attitude: cooperative Thought process: Normal thought process present Assessment & Plan Assessment & Plan (1) Women's annual routine gynecological examination: Code(s): Z01.419 - Encounter for gynecological examination (general) (routine) without abnormal findings Category: Medical Plan: Discussed: Current recommendations for pap smears per ASCCP guidelines. Pap obtained. Breast awareness and periodic breast exams. Maintain a healthy lifestyle including a well balanced diet and routine exercise. Use condoms for STI and prevention. Adela care reviewed-advised to continue with tucks pads, adela rinse bottle, pat or air dry, follow up if any concerns with healing. Patient verbalizes understanding and agrees to the plan of care. She was given opportunity to ask questions and all questions were answered to the best of my ability. RTO in one year for annual field nurse case manager examination. This note is constructed using voice recognition software. While every effort has been made to ensure accuracy, slot tag inserter errors may have been included. (2) Pelvic pain: Onset Date: ~10/04/24 Code(s): R10.2 - Pelvic and perineal pain Category: Medical Plan: Plan pelvic ultrasound follow up, GC chlamydia and BV panel obtained. (3) Ovarian cyst: Code(s): N83.209 - Unspecified ovarian cyst, unspecified side Category: Medical Qualifiers: Laterality: right Qualified Code(s): N83.201 - Unspecified ovarian cyst, right side Plan Reviewed patient portal information. Advised to sign for release of her records from [facility]. Pelvic ultrasound planned for a follow up. The patient expressed understanding and agreement with the plan of care. All of her questions and concerns were addressed to the best of my ability. Total time I personally spent on visit and management today: ?20 minutes. Time spent included review of pertinent office notes in the electronic health record; review of laboratory and imaging results; review of personal family medical history; performing physical exam; discussing diagnosis and plan of care with the patient; documenting the encounter in the EMR. This note is constructed using voice recognition software. While every effort has been made to ensure accuracy, slot tag inserter errors may have been included. Orders: Orders Bacterial Vaginosis Panel Today Z11.3 - Encounter for screening for infections with a predominantly sexual mode of transmission Pap Smear Today Z01.419 - Encounter for gynecological examination (general) (routine) without abnormal findings CT NG by PCR Vag/Cerv Today Z11.3 - Encounter for screening for infections with a predominantly sexual mode of transmission US pelvic and transvaginal Today N83.209 - Unspecified ovarian cyst, unspecified side, R10.2 - Pelvic and perineal pain Coding Level of Care Code New Pt Level 2 (37528) New Pt Prev Care 18-39yr([id number] Diagnoses Women's annual routine gynecological examination Z01.419 Pelvic pain R10.2 Cyst of right ovary N83.201 Laterality: right
--- OUTSIDE RECORDS SUMMARY | 2024-10-04 15:04 | XMS_ITS | Clinical Summary ---
Author Organization [facility] Address [address] [place] [address] Phone Care Team Providers Care Dice Maker Name Role Phone Flora Allen MD Primary Care Provider [phone] Allergies No known active allergies Medications oxyCODONE-aceta minophen (PERCOCET) 5-325 mg per tabletIndicatio ns:Acute right flank pain Take 1 tablet by mouth 2 (two) times a day if needed for severe pain for up to 5 doses. Max Daily Amount: 2 tablets 5 tablet 09/24/2024 Active Encounters Date Type Department Care Team Description 09/23/2024 7:41 PM EDT - 09/24/2024 3:26 AM EDT Emergency [facility] Emergency [address] [place] [address] Jw Davey MD Acute right flank pain (Primary Dx) Discharge Disposition: Home or Self Care from Last 3 Months Surgical History Surgery Date Site/Laterality Comments SECTION PROCEDURE: NE DELIVERY ONLY OTHER SURGICAL HISTORY 10/2019 PROCEDURE: [...] Sexual Orientation Not on file Obstetrics History Last Filed Vital Signs Vital Sign Reading Time Taken Comments Blood Pressure 102/75 09/24/2024 3:24 AM EDT Pulse 73 09/24/2024 3:24 AM EDT Temperature 36.7 C (98 F) 09/24/2024 3:24 AM EDT Respiratory Rate 18 09/24/2024 3:24 AM EDT Oxygen Saturation 96% 09/24/2024 3:24 AM EDT Inhaled Oxygen Concentration - - Weight 64.4 kg (142 lb) 09/23/2024 7:11 PM EDT Height 154.9 cm (5' 1 ) 09/23/2024 7:11 PM EDT Body Mass Index 26.83 09/23/2024 7:11 PM EDT Plan of Treatment Health Maintenance Due Date Last Done Comments Hepatitis B Vaccines (1 of 3 - 19+ 3-dose series) 09/01/2011 Cervical Cancer Screening: P ap Smear 2013 Depression Screening 03/08/2022 HIV Screening 03/08/2022 Hepatitis C Screening 03/08/2022 Social Influencers of Health Screening 03/08/2022 DTaP,Tdap,and Td Vaccines (2 - Td or Tdap) 06/24/2022 06/24/2012 COVID-19 Vaccine ( - 2023-2 5 season) 2023 Influenza Vaccine (Season Ended) 2024 HIB Vaccines Aged Out No longer eligi [...] patient's age to complete this topic Meningococcal B Vaccine Aged Out No l onger eligible based on patient's age to complete [...] on patient's age to complete this topic Procedures Procedure Name Priority Date/Time Associated Diagnosis Comments US PELVIS NON OB COMPLETE W TRANSVAGINAL STAT 09/24/2024 12:[address] ABDOMEN PELVIS WO CONTRAST STAT 09/23/2024 8:49 PM EDT POC , URINE DIAGNOSTIC STAT 09/23/2024 7:23 PM EDT [facility] URINE CULTURE TUBE STAT 09/23/2024 7:23 PM EDT URINALYSIS WITH REFLEX MICROSCOPIC AND CULTURE STAT 09/23/2024 7:23 PM EDT URINALYSIS WITH REFLEX MICROSCOPIC AND CULTURE STAT 09/23/2024 7:23 PM EDT CBC WITH AUTO DIFFERENTIAL STAT 09/23/2024 7:17 PM EDT COMPREHENSIVE METABOLIC PANEL STAT 09/23/2024 7:17 PM EDT CBC AND DIFFERENTIAL STAT 09/23/2024 7:17 PM EDT from Last 3 Months Results * US Pelvis Non OB Complete w Transvaginal (09/24/2024 12:50 AM EDT) Anatomical Region Laterality Modality Body, Pelvis Ultrasound 09/24/2024 2:22 AM EDT Impressions 09/24/2024 2:22 AM EDT 1. Negative for ovarian torsion. 2. Nonspecific 2.5 x 2.2 x 2.7 cm anechoic cystic structure present at the right adnexa with minimal mural nodularity. No internal flow identified within this structure on color Doppler imaging. Recommend nonemergent contrast-enhanced pelvis MRI examination for further evaluation. This document has been electronically signed by: Demetri Nolan MD on 09/24/2024 02:22:01 Narrative 09/24/2024 2:22 AM EDT INDICATION: pain US pelvis transabdominal and transvaginal with Doppler Comparison: CT - CT ABD PEL WO CONTRAST - 09/23/24 20:47 EDT Findings: Transabdominal scanning performed for overall anatomy. Transvaginal scanning performed for additional detail. Anteverted uterus measures 9.6 cm in length on transabdominal imaging. Nabothian cysts are present at the level of the cervix. The endometrium measures 4.7 mm in thickness on transvaginal imaging. The right ovary measures 3.7 x 2.0 x 2.5 cm on transvaginal imaging. A 2.5 x 2.2 x 2.7 cm anechoic cystic structure with posterior acoustic enhancement is present at the right adnexa. There appears to be minimal mural nodularity within this structure. No internal flow identified within this structure on color Doppler imaging. The left ovary measures 3.2 x 2.4 x 2.6 cm on transabdominal imaging and 4.2 x 2.2 x 2.8 cm on transvaginal imaging. Flow present at the bilateral ovaries on color and spectral Doppler imaging. Minimal free fluid present within the pelvis. Procedure Note Demetri Nolan MD - 09/24/2024 INDICATION: pain US pelvis transabdominal and transvaginal with Doppler Comparison: CT - CT ABD PEL WO CONTRAST - 09/23/24 20:47 EDT Findings: Transabdominal scanning performed for overall anatomy. Transvaginal scanning performed for additional detail. Anteverted uterus measures 9.6 cm in length on transabdominal imaging. Nabothian cysts are present at the level of the cervix. The endometrium measures 4.7 mm in thickness on transvaginal imaging. The right ovary measures 3.7 x 2.0 x 2.5 cm on transvaginal imaging. A2.5 x 2.2 x 2.7 cm anechoic cystic structure with posterior acoustic enhancement is present at the right adnexa. There appears to be minimal mural nodularity within this structure. No internal flow identifiedwithin this structure on color Doppler imaging. The left ovary measures 3.2 x 2.4 x 2.6 cm on transabdominal imaging and 4.2 x 2.2 x 2.8 cm on transvaginal imaging. Flow present at the bilateral ovaries on color and spectral Doppler imaging. Minimal free fluid present within the pelvis. IMPRESSION: 1. Negative for ovarian torsion. 2. Nonspecific 2.5 x 2.2 x 2.7 cm anechoic cystic structure present atthe right adnexa with minimal mural nodularity. No internal flow identified within this structure on color Doppler imaging. Recommend nonemergent contrast-enhanced pelvis MRI examination for further evaluation. This document has been electronically signed by: Demetri Nolan MD on 09/24/2024 02:22:01 us Jw Davey MD IMG US PROCEDURES Final Result * CT Abdomen Pelvis wo Contrast (09/23/2024 8:49 PM EDT) Anatomical Region Laterality Modality Body Computed Tomogra phy 09/23/2024 9:35 PM EDT Impressions 09/23/2024 9:35 PM EDT 1. No acute inflammatory process identified within the abdomen or pelvis. No radiopaque renal calculi, hydronephrosis, or hydroureter. This document has been electronically signed by: Demetri Nolan MD on 09/23/2024 21:35:12 Narrative 09/23/2024 9:35 PM EDT INDICATION: Flank pain, kidney stone suspected CT abdomen and pelvis without contrast Comparison: None Findings: No consolidation or effusion. The gallbladder and solid organs are within normal limits. No renal stones. No hydronephrosis or hydroureter. No significant perinephric fat stranding. No bowel obstruction, pneumoperitoneum, or pneumatosis. Pelvic contents unremarkable. The bladder is minimally distended with fluid, limiting its evaluation. Normal appendix. The bones are intact. Procedure Note Demetri Nolan MD - 09/23/2024 INDICATION: Flank pain, kidney stone suspected CT abdomen and pelvis without contrast Comparison: None Findings: No consolidation or effusion. The gallbladder and solid organs are within normal limits. No renal stones. No hydronephrosis or hydroureter. No significant perinephric fat stranding. No bowel obstruction, pneumoperitoneum, or pneumatosis. Pelvic contents unremarkable. The bladder is minimally distended with fluid, limiting its evaluation. Normal appendix. The bones are intact. IMPRESSION: 1. No acute inflammatory process identified within the abdomen orpelvis. No radiopaque renal calculi, hydronephrosis, or hydroureter. This document has been electronically signed by: Demetri Nolan MD on 09/23/2024 21:35:12 Jw Davey MD IM CT PROCEDURES Final Result * (ABNORMAL) Urinalysis with reflex microscopic and culture (09/23/2024 7:23 PM EDT) Specific [place] Urine 1.025 1.003 - 1.030 LAB URINALYSIS - AUTOMATED METHOD 09/23/2024 8:05 PM [facility] pH, Urine 6.5 5.0 - 8.0 pH LAB URINALYSIS - AUTOMATED METHOD 09/23/2024 8:05 PM [facility] Leukocytes, Urine Negative Negative LAB URINALYSIS - AUTOMATED METHOD 09/23/2024 8:05 PM [facility] Nitrite, Urine Negative Negative LAB URINALYSIS - AUTOMATED METHOD 09/23/2024 8:05 PM [facility] Protein, Urine Negative <=Trace mg/dL LAB URINALYSIS - AUTOMATED METHOD 09/23/2024 8:05 PM [facility] Glucose, Urine Negative Negative mg/dL LAB URINALYSIS - AUTOMATED METHOD 09/23/2024 8:05 PM [facility] Ketones, Urine Trace(A) Negative mg/dL LAB URINALYSIS - AUTOMATED METHOD 09/23/2024 8:05 PM EDT [facility] Urobilinogen, Urine 1.0 0.2 - 1.0 mg/dL LAB URINALYSIS - AUTOMATED METHOD 09/23/2024 8:05 PM EDT [facility] Bilirubin, Urine Negative Negative LAB URINALYSIS - AUTOMATED METHOD 09/23/2024 8:05 PM EDT [facility] Blood, Urine Negative Negative LAB URINALYSIS - AUTOMATED METHOD 09/23/2024 8:05 PM EDT [facility] Urine Urine specimen obtained by clean catch procedure / Unknown Non-blood Collection / Unknown 09/23/2024 7:23 PM EDT 09/23/2024 7:50 PM EDT Jw Ospina LAB URINE ORDERABLES Final Res ult Performing Organization Address City/[facility]/ZIP Co de Phone Number [facility] [address] [place] [address], [place] [phone] * [facility] urine culture tube (09/23/2024 7:23 PM EDT) Pathologist [facility] Extra Tube Hold for add-ons. 09/26/2024 10:02 PM EDT [facility] Comment:Auto resulted. Urine Urine specimen obtained by clean catch procedure / Unknown Non-blood Collection / Unknown 09/23/2024 7:23 PM EDT 09/23/2024 7:50 PM EDT Jw Ospina DO LAB URINE ORDERABLES Final Res ult [facility] [address] [place] [address], [place] [phone] * POC , urine manually resulted (09/23/2024 7:23 PM EDT) Pathologist [facility] HCG, Ur POC Negative Negative Urine Urine specimen obtained by clean catch procedure / Unknown 09/23/2024 7:23 PM EDT Jw Ospina DO POINT OF CARE TEST ENTER/EDIT ORDERABLES Final Result * CBC auto differential (09/23/2024 7:17 PM EDT) [facility] WBC 6.8 4.8 - 10.8 K/mcL LAB HEMETOLOGY [facility] RBC 4.00 3.80 - 4.80 M/mcL LAB HEMETOLOGY METHOD 09/23/2024 8:06 PM [facility] Hemoglobin 12.2 11.5 - 16.0 g/dL LAB HEMETOLOGY METHOD 09/23/2024 8:06 PM [facility] Hematocrit 35.9 35.0 - 47.0 % LAB HEMETOLOGY METHOD 09/23/2024 8:06 PM [facility] MCV 89.8 79.0 - 98.0 FL LAB HEMETOLOGY METHOD 09/23/2024 8:06 PM [facility] MCH 30.5 27.0 - 32.0 pcg LAB HEMETOLOGY METHOD 09/23/2024 8:06 PM [facility] MCHC 34.0 32.0 - 37.0 g/dL LAB HEMETOLOGY METHOD 09/23/2024 8:06 PM [facility] RDW 11.8 11.0 - 15.0 % LAB HEMETOLOGY METHOD 09/23/2024 8:06 PM [facility] Platelets 265 130 - 400 K/mcL LAB HEMETOLOGY METHOD 09/23/2024 8:06 PM [facility] MPV 9.8 7.0 - 11.0 FL LAB HEMETOLOGY METHOD 09/23/2024 8:06 PM [facility] NRBC 0.0 <1.0 % LAB HEMETOLOGY METHOD 09/23/2024 8:06 PM [facility] NRBC Absolute 0.00 <0.10 K/mcL LAB HEMETOLOGY METHOD 09/23/2024 8:06 PM [facility] Neutrophils Relative 64.1 % LAB HEMETOLOGY METHOD 09/23/2024 8:06 PM [facility] Lymphocytes Relative 24.4 % LAB HEMETOLOGY METHOD 09/23/2024 8:06 PM [facility] Monocytes Relative 8.9 % LAB HEMETOLOGY METHOD 09/23/2024 8:06 PM [facility] Eosinophils Relative 2.2 % LAB HEMETOLOGY METHOD 09/23/2024 8:06 PM [facility] Basophils Relative 0.3 % LAB HEMETOLOGY METHOD 09/23/2024 8:06 PM [facility] Immature Granulocytes Relative 0.1 % LAB HEMETOLOGY METHOD 09/23/2024 8:06 PM [facility] Neutrophils Absolute 4.32 1.50 - 7.00 K/mcL LAB HEMETOLOGY METHOD 09/23/2024 8:06 PM [facility] Lymphocytes Absolute 1.65 1.00 - 5.00 K/mcL LAB HEMETOLOGY METHOD 09/23/2024 8:06 PM [facility] Monocytes Absolute 0.60 0.20 - 1.00 K/mcL LAB HEMETOLOGY METHOD 09/23/2024 8:06 PM [facility] Eosinophils Absolute 0.15 0.00 - 0.50 K/mcL LAB HEMETOLOGY METHOD 09/23/2024 8:06 PM [facility] Basophils Absolute 0.02 0.00 - 0.20 K/mcL LAB HEMETOLOGY METHOD 09/23/2024 8:06 PM EDT [facility] Immature Granulocytes Absolute 0.01 0.00 - 0.03 K/[facility] LAB HEMETOLOGY METHOD 09/23/2024 8:06 PM EDT [facility] Blood Venous blood specimen / Unknown Venipuncture / Unknown 09/23/2024 7:17 PM EDT 09/23/2024 7:50 PM EDT us Jw Ospina DO LAB BLOOD ORDERABLES Final Res ult [facility] [address] [place] [address], [place] [phone] * Comprehensive metabolic panel (09/23/2024 7:17 PM EDT) Sodium 136 133 - 145 mmol/L LAB CHEMISTRY METHOD 09/23/2024 8:15 PM [facility] Potassium 3.8 3.5 - 5.5 mmol/L LAB CHEMISTRY METHOD 09/23/2024 8:15 PM [facility] Chloride 105 96 - 110 mmol/L LAB CHEMISTRY METHOD 09/23/2024 8:15 PM [facility] CO2 24 21 - 32 mmol/L LAB CHEMISTRY METHOD 09/23/2024 8:15 PM [facility] Anion Gap 7 3 - 11 LAB CHEMISTRY METHOD 09/23/2024 8:15 PM [facility] Glucose 97 70 - 100 mg/dL LAB CHEMISTRY METHOD 09/23/2024 8:15 PM [facility] BUN 12 5 - 25 mg/dL LAB CHEMISTRY METHOD 09/23/2024 8:15 PM [facility] Creatinine 0.57 0.50 - 1.10 mg/dL LAB CHEMISTRY METHOD [facility]/23[facility]24 [facility] eGFR 124 >=60 mL/min/1. 73m2 LAB CHEMISTRY METHOD 09/23/2024 8:15 PM [facility] Comment:Calculation based on the Chronic Kidney Disease Epidemiology Collaboration (CKD-EPI) equation refit without adjustment for race. BUN/Creatinine Ratio 21.1 LAB CHEMISTRY METHOD 09/23/2024 8:15 PM [facility] Calcium 9.6 8.5 - 10.5 mg/dL LAB CHEMISTRY METHOD 09/23/2024 8:15 PM [facility] AST (SGOT) 13 10 - 42 unit/L LAB CHEMISTRY METHOD 09/23/2024 8:15 PM [facility] ALT (SGPT) 19 10 - 60 unit/L LAB CHEMISTRY METHOD 09/23/2024 8:15 PM [facility] Alkaline Phosphatase 74 42 - 121 unit/L LAB CHEMISTRY METHOD 09/23/2024 8:15 PM [facility] Total Protein 7.4 6.0 - 8.0 g/dL LAB CHEMISTRY METHOD 09/23/2024 8:15 PM [facility] Albumin 4.2 3.2 - 5.0 g/dL LAB CHEMISTRY METHOD 09/23/2024 8:15 PM [facility] Total Bilirubin 0.5 0.0 - 1.4 mg/dL LAB CHEMISTRY METHOD 09/23/2024 8:15 PM [facility] Blood Venous blood specimen / Unknown Venipuncture / Unknown 09/23/2024 7:17 PM EDT 09/23/2024 7:50 PM EDT us Jw Ospina DO LAB BLOOD ORDERABLES Final Res ult [facility] [address] [place] [address], from Last 3 Months Insurance [facility] Care Teams Dice Maker Relationship Specialty Start Date End Date Flora Allen MD [address] [place] [address] , [address] [facility] D[facility]A: [facility] [place], [place] PCP - General Internal Medicine 04/17/19
--- OUTSIDE RECORDS SUMMARY | 2024-10-04 15:04 | XMS_ITS | Clinical Summary ---
Author Organization [address] [address] Phone Care Team Providers Care Industrial Hygenist Name Role Phone No, Pcp (Do Not [...] 72 05/18/2015 8:24 PM EST Temperature 37.1 C (98.7 F) 05/18/2015 8:24 PM EST Respiratory Rate 18 05/18/2015 8:24 PM EST [...] 10,TDAP once) 2012 Cervical cancer screening 2013 Covid-19 vaccine series ( - 2023-25 season) 2023 Influenza vaccine 12/04/2024 RSV Immunization (1 - 1-dose 75+ series) 09/01/2067 Meningococcal Vaccine Aged Out No aristeo tae eligible based on patient's age to complete this topic Pneumococcal Vaccine (2 - 49 years) Aged Out No longer eligible based on patient's age to complete this topic Insurance [employer] [id number] MEDICAID U[employer] Member Subscriber Plan / Payer (Ef fective 2015-Present) Name:Shu Cerda Relation to Subscriber:Self Name:DeshawnbayShu santana Payer ID:[id number] Type:Not on file Address: [place] [phone] [id number] MEDICAID U[employer] [id number] MEDICAID UMR [id number] MEDICAID Care Teams Industrial Hygenist Relationship Specialty Start Date End Date No, Pcp (Do Not Change Name) PCP - General 05/18/15
== END 2024-10-04 15:37 | disposition home or self-care (01) ==
LOC: HO.HWS 14:38
PROVIDERS: PCP Internal Medicine; Visit Provider Advanced Practice Midwife
DX: Z01.419 Encounter for gynecological examination (general) (routine) without abnormal findings (principal); R10.2 Pelvic and perineal pain; N83.201 Unspecified ovarian cyst, right side
CPT/HCPCS: 99212; 99385; 99459

== ENCOUNTER 2024-10-04 14:38 | Outpatient (REF) | payer OTHER, SELFPAY ==
[2024-10-04 21:05] LABS: Bacterial Vaginosis PCR NEGATIVE (Negative); Candida Group PCR NOT DETECTED (Not Detect); Candida glab krusei PCR NOT DETECTED (Not Detect); Trichomonas vaginalis PCR NOT DETECTED (Not Detect)
[2024-10-04 22:33] LABS: CT PCR NOT DETECTED (Not Detect.); NG PCR NOT DETECTED (Not Detect.)
== END 2024-10-04 14:39 | disposition home or self-care (01) ==
LOC: HO.LNP 14:38
PROVIDERS: PCP Internal Medicine; Visit Provider Advanced Practice Midwife
DX: Z01.411 Encounter for gynecological examination (general) (routine) with abnormal findings (principal); Z11.3 Encounter for screening for infections with a predominantly sexual mode of transmission; N83.201 Unspecified ovarian cyst, right side; R10.2 Pelvic and perineal pain; N89.8 Other specified noninflammatory disorders of vagina
CPT/HCPCS: 81515; 87491; 87591; 87626; 88175; 99212; 99385

== ENCOUNTER → 2024-10-13 15:19 | Outpatient (BNV) | payer OTHER, SELFPAY | PROVIDERS: PCP Internal Medicine; Visit Provider Radiology Diagnostic Radiology | DX: M54.9 Dorsalgia, unspecified (principal) | CPT/HCPCS: 72100 ==

== ENCOUNTER 2024-10-13 15:53 | Emergency (ER) | payer OTHER, SELFPAY ==
--- NOTE | ~2024-10-13 | XR_ITS ---
CLINICAL HISTORY: back pain 3 views lumbar spine Comparison: None provided Findings: Normal vertebral body alignment. There is partial lumbarization of S1. No acute fractures or dislocation. No significant degenerative change. IMPRESSION: No acute findings. This document has been electronically signed by: Yahaira Jimenes MD on 10/13/2024 16:36:42
[2024-10-13 15:56] VITALS: BP 112/72; PULSE 97; RESP 16; TEMP 36.2; O2SAT 98; BMI 20.8
[2024-10-13 16:49] LABS: MANUAL DIFF FLAG NO
[2024-10-13 16:52] LABS: Hematocrit 34.9 % (37.0-47.0); Hemoglobin 12.4 g/dl (12.0-16.0); Imm Gran Abs Auto 0.01 X10*3/uL (0.00-0.03); Imm Gran Pct Auto 0.2 % (0.0-0.4); Lymphocytes Absolute Auto 1.5 X10*3/uL (1.2-4.9); Mean Corpuscular HGB Conc 35.5 g/dl (31.0-35.0); Mean Corpuscular Hemoglobin 30.4 pg (27.0-33.0); Mean Corpuscular Volume 85.5 fL (80.0-98.0); NRBC Abs Auto 0.000 X10*3/uL (0.0-0.012); NRBC Pct Auto 0.0 /100WBC (0.0-0.2); Platelet Count 297 X10*3/uL (160-400); Red Blood Count 4.08 X10*6/uL (4.20-5.50); White Blood Count 6.0 X10*3/uL (4.8-10.8)
[2024-10-13 17:05] LABS: Alanine Aminotransferase 16 U/L (0-31); Albumin Level 4.8 g/dL (3.5-5.0); Alkaline Phosphatase 74 U/L (39-117); Anion Gap 10 (12-20); Aspartate Amino Transferase 21 U/L (5-31); Blood Urea Nitrogen 15 mg/dL (9-16); Calcium 9.5 mg/dL (8.4-10.2); Carbon Dioxide 27 mmol/L (22-29); Chloride 106 mmol/L (96-108); Creatinine Clr Calc Pharmacy 112.9; Estimated Glomerular Filt Rate > 60; Potassium 4.2 mmol/L (3.3-5.1); Sodium 139 mmol/L (135-145); Total Protein 7.7 g/dL (6.5-8.0)
--- NOTE | 2024-10-13 17:59 | ED_ITS ---
HPI - General Adult General Chief complaint: Extremity Injury, Lower Stated complaint: 2 weeks numbness/shocking feeling in both legs Time Seen by Provider: 10/13/24 17:58 Source: patient Limitations: no limitations History of Present Illness ED Provider: Miranda Duenas PA-C HPI narrative: 34-year-old female with a history of anemia, anxiety, GERD, chronic low back pain who presents with back pain x2 weeks. Pain across low back with radiation into the right lower extremity. Associated paresthesia. Denies weakness of lower extremity, bowel incontinence or urinary retention. Patient was seen by urgent Care, she was prescribed Flexeril, this helps the back pain, it does not help the tingling in the right lower extremity. Denies overuse injury, fall, new heavy lifting that could have precipitated her symptoms. Related Data Home Medications ?Medication ?Instructions ?Recorded ?Confirmed buspirone 5 mg tablet 5 mg PO .prn 10/04/24 Previous Rx's ?Medication ?Instructions ?Recorded cyclobenzaprine 10 mg tablet 10 mg PO BEDTIME PRN musc le spasm 05/18/24 30 days #30 tabs meloxicam 15 mg tablet 15 mg PO DAILY PRN pain #7 t abs 10/13/24 methylprednisolone 4 mg tablets in 4 mg PO QAM #21 ea 10/13/24 a dose pack (Medrol (Messi)) Allergies Allergy/AdvReac Type Severity Reaction Status Date / Time No Known Allergies Allergy Verified 10/13/24 15:56 Review of Systems 2 Review of Systems: Yes all other systems are reviewed and are negative Constitutional: Constitutional: Denies fatigue and Denies fever(s) Cardiovascular: Cardiovascular: Denies chest pain and Denies dyspnea Respiratory: Respiratory: Denies dyspnea Gastrointestinal: Gastrointestinal: Denies abdominal pain Musculoskeletal: Musculoskeletal: Reports back pain, Denies numbness, Reports radiating pain into limb and Reports tingling Neurologic: Denies numbness and Reports tingling Endocrine: Endocrine: Denies fatigue PMFSH Past Medical History Attestation statement: The following information was validated with the patient. Medical History Ovarian cyst Pelvic pain (~10/04/24) GERD (gastroesophageal reflux disease) Leukopenia Physical exam Right knee pain Uterine fibroid Anemia Anxiety Surgical History Hx of tubal ligation History of section H/O myomectomy Family History Family History Father Medical history unknown Mother Stroke Diabetes Maternal Grandmother Diabetes Hypertension Paternal Grandmother Breast cancer Throat cancer Son In good health Family/Other Ovarian cancer Social History Social History Household Members: Children Housing: House Alcohol intake: current Alcohol intake frequency: a few times a month Alcohol type: wine and hard liquor Patient Tobacco Use Status: Never used Tobacco Smoked in Last 30 Days: No e-Cigarette/Vaping Use: Never Used Second Hand Smoke Exposure: No Use of substances other than those prescribed or required for medical reasons: Yes Advance Directives: No Advance Directives Information Provided: Yes Do you have a plan to hurt others: No Plan Patient : No service: No Current occupational status: employed 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 Sexual orientation: Straight/Heterosexual Gender identity: Female Cognitive needs: No Hearing needs: No Vision needs: No Physical Exam ED Vital Signs: Vital Signs - 24 hr 10/13/24 15:56 10/13/24 18:29 Temperature 97.1 F 97.1 F Pulse Rate 97 97 Respiratory Rate 16 16 Blood Pressure 112/72 112/72 Pulse Oximetry 98 98 Oxygen Delivery Method Room Air Room Air BMI result Body Mass Index 20.8 Const Other: Alert well-appearing Orientation/consciousness: patient oriented x3 Resp Effort & Inspection: normal respiratory effort Cardio Other: Normal peripheral perfusion Skin Other: Warm dry no rash Neuro General: patient oriented x3, gait normal, no focal motor deficits and CN's II- XI intact bilaterally Psych Other: Cooperative Medical Decision Making Medical Decision Making MDM Narrative: 34-year-old female with a history of anemia, anxiety, GERD, chronic low back pain who presents with back pain x2 weeks. Pain across low back with radiation into the right lower extremity. Associated paresthesia. Denies weakness of lower extremity, bowel incontinence or urinary retention. Patient was seen by urgent Care, she was prescribed Flexeril, this helps the back pain, it does not help the tingling in the right lower extremity. Denies overuse injury, fall, new heavy lifting that could have precipitated her symptoms. Problem: Chronic pain History: Per patient I have considered the following differential diagnoses: Compression fracture, lumbar strain, lumbar radiculopathy, cauda equina Plan: Patient's symptoms are consistent with sciatica, she has no red flag signs symptoms concerning for cord compression. We will treat accordingly. X- rays obtained from triage, the patient has lumbarization of S1, this is the likely cause of her chronic pain. We will send the patient with home care instructions. I have independently reviewed the following tests: Labs: No leukocytosis, not anemic X-ray lumbar spine:Findings: Normal vertebral body alignment. There is partial lumbarization of S1. No acute fractures or dislocation. No significant degenerative change. IMPRESSION: No acute findings. Lab Data 10/13/24 16:47 10/13/24 16:47 Labs: Lab Results 10/13/24 Range/Units 16:47 WBC 6.0 (4.8-10.8) X10*3/uL RBC 4.08 L (4.20-5.50) X10*6/uL Hgb 12.4 (12.0-16.0) g/dl Hct 34.9 L (37.0-47.0) % MCV 85.5 (80.0-98.0) fL MCH 30.4 (27.0-33.0) pg MCHC 35.5 H (31.0-35.0) g/dl RDW 11.8 (11.0-16.0) % Plt Count 297 D (160-400) X10*3/uL MPV 9.2 L (9.4-12.3) fL Immature Gran % (Auto) 0.2 (0.0-0.4) % Neut % (Auto) 60.1 (45-73) % Lymph % (Auto) 24.7 (20-40) % [place] % (Auto) 11.6 H (2-11) % Eos % (Auto) 2.7 (0-4) % Baso % (Auto) 0.7 (0-2) % Lymph # (Auto) 1.5 (1.2-4.9) X10*3/uL [place] # (Auto) 0.7 (0.1-1.2) X10*3/uL Eos # (Auto) 0.2 (0.0-0.4) X10*3/uL Baso # (Auto) 0.0 (0.0-0.2) X10*3/uL Abs Immat Gran (auto) 0.01 (0.00-0.03) X10*3/uL Absolute Neuts (auto) 3.6 (2.0-8.3) x10*3/uL Absolute Nucleated RBC 0.000 (0.0-0.012) X10*3/uL Nucleated RBC % (auto) 0.0 (0.0-0.2) /100WBC Sodium 139 (135-145) mmol/L Potassium 4.2 (3.3-5.1) mmol/L Chloride 106 (96-108) mmol/L Carbon Dioxide 27 (22-29) mmol/L Anion Gap 10 L (12-20) BUN 15 (9-16) mg/dL Creatinine 0.64 (0.5-1.4) mg/dL Estim Creat Clear Calc 112.9 Estimated GFR > 60 Random Glucose 92 (60-115) mg/dL Calcium 9.5 (8.4-10.2) mg/dL Total Bilirubin 0.3 (0.0-1.0) mg/dL AST 21 (5-31) U/L ALT 16 (0-31) U/L Alkaline Phosphatase 74 (39-117) U/L Total Protein 7.7 (6.5-8.0) g/dL Albumin 4.8 (3.5-5.0) g/dL Discharge Plan Discharge Clinical Impression: Lumbarization, vertebra, Lumbar radiculopathy, right Patient Disposition: Home, Self-Care Instructions: Lumbar Radiculopathy (ED) Additional Instructions: Your symptoms are consistent with lumbar radiculopathy, or sciatica. See home care instructions. Take the Medrol Dosepak as directed this is a steroid. Take the meloxicam as directed this is an anti-inflammatory take it with food. Continue to use the Flexeril as needed for further pain. You were noted to have what is called lumbarization of S1. 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 This can cause pain. You should follow up with primary care, they can refer you to a spine and sport provider, you may benefit from cortisone injections at some point in the future. Call to schedule a follow up appointment. Prescriptions: New methylprednisolone [Medrol (Messi)] 4 mg tablets,dose pack 4 mg PO QAM Qty: 21 0RF Rx Instructions: Take per package instructions meloxicam 15 mg tablet 15 mg PO DAILY PRN (Reason: pain) Qty: 7 0RF No Action buspirone 5 mg tablet 5 mg PO .prn cyclobenzaprine 10 mg tablet 10 mg PO BEDTIME PRN (Reason: muscle spasm) 30 Days Qty: 30 3RF Print Language: French
--- OUTSIDE RECORDS SUMMARY | 2024-10-13 18:16 | XMS_ITS | Clinical Summary ---
Author Organization [facility] Address [address] [place] [address] Phone Care Team Providers Care Hat Ironer Name Role Phone Flora Allen MD Primary Care Provider [phone] Allergies No known active allergies Medications oxyCODONE-aceta minophen (PERCOCET) 5-325 mg per tabletIndicatio ns:Acute right flank pain Take 1 tablet by mouth 2 (two) times a day if needed for severe pain for up to 5 doses. Max Daily Amount: 2 tablets 5 tablet 09/24/2024 Active Encounters Date Type Department Care Team Description 09/23/2024 7:41 PM EDT - 09/24/2024 3:26 AM EDT Emergency [facility] Emergency [address] [place] [address] Jw Davey MD Acute right flank pain (Primary Dx) Discharge Disposition: Home or Self Care from Last 3 Months Surgical History Surgery Date Site/Laterality Comments SECTION PROCEDURE: ND DELIVERY ONLY OTHER SURGICAL HISTORY 10/2019 PROCEDURE: [...] 2023-2 5 season) 2023 Influenza Vaccine (#1) 2024 HIB Vaccines Aged Out No longer [...] 5 Years) and At-Risk Patients (6 to 49 Years) Aged Out No longer eligi ble [...] and culture (09/23/2024 7:23 PM EDT) Specific [place] Urine 1.025 1.003 - 1.030 LAB URINALYSIS - AUTOMATED METHOD 09/23/2024 8:05 PM [facility] pH, Urine 6.5 5.0 - 8.0 pH LAB URINALYSIS - AUTOMATED METHOD 09/23/2024 8:05 PM [facility] Leukocytes, Urine Negative Negative LAB URINALYSIS - AUTOMATED METHOD 09/23/2024 8:05 PM [facility] Nitrite, Urine Negative Negative LAB URINALYSIS - AUTOMATED METHOD 09/23/2024 8:05 PM [facility] Protein, Urine Negative <=Trace mg/dL LAB URINALYSIS - AUTOMATED METHOD 09/23/2024 8:05 PM [facility] Glucose, Urine Negative Negative mg/dL LAB URINALYSIS - AUTOMATED METHOD 09/23/2024 8:05 PM [facility] Ketones, Urine Trace(A) Negative mg/dL LAB URINALYSIS - AUTOMATED METHOD 09/23/2024 8:[address] [facility] Urobilinogen, Urine 1.0 0.2 - 1.0 mg/dL LAB URINALYSIS - AUTOMATED METHOD 09/23/2024 8:[address] [facility] Bilirubin, Urine Negative Negative LAB URINALYSIS - AUTOMATED METHOD 09/23/2024 8:[address] [facility] Blood, Urine Negative Negative LAB URINALYSIS - AUTOMATED METHOD 09/23/2024 8:[address] [facility] Urine Urine specimen obtained by clean catch procedure / Unknown Non-blood Collection / Unknown 09/23/2024 7:23 PM EDT 09/23/2024 7:50 PM EDT Jw Ospina LAB URINE ORDERABLES Final Res ult Performing Organization Address City/[facility]/ZIP Co de Phone Number [facility] [address] [place] [address], [place] [phone] * [place] urine culture tube (09/23/2024 7:23 PM EDT) Pathologist [facility] Extra Tube Hold for add-ons. 09/26/2024 10:[address] [facility] Comment:Auto resulted. Urine Urine specimen obtained by clean catch procedure / Unknown Non-blood Collection / Unknown 09/23/2024 7:23 PM EDT 09/23/2024 7:50 PM EDT Jw Ospina DO LAB URINE ORDERABLES Final Res ult [facility] [address] [place] [address], [place] [phone] * POC , urine manually resulted (09/23/2024 7:23 PM EDT) Pathologist [facility] HCG, Ur POC Negative Negative Urine Urine specimen obtained by clean catch procedure / Unknown 09/23/2024 7:23 PM EDT Jw Ospina DO POINT OF CARE TEST ENTER/EDIT ORDERABLES Final Result * CBC auto differential (09/23/2024 7:17 PM EDT) [facility] WBC 6.8 4.8 - 10.8 K/mcL LAB HEMETOLOGY METHOD [facility]24 [facility] RBC 4.00 3.80 - 4.80 M/mcL LAB HEMETOLOGY METHOD 09/23/2024 8:06 PM [facility] Hemoglobin 12.2 11.5 - 16.0 g/dL LAB HEMETOLOGY METHOD 09/23/2024 8:06 PM [facility] Hematocrit 35.9 35.0 - 47.0 % LAB HEMETOLOGY METHOD 09/23/2024 8:06 PM [facility] MCV 89.8 79.0 - 98.0 FL LAB HEMETOLOGY METHOD 09/23/2024 8:06 PM [facility] MCH 30.5 27.0 - 32.0 pcg LAB HEMETOLOGY METHOD 09/23/2024 8:06 PM [facility] MCHC 34.0 32.0 - 37.0 g/dL LAB HEMETOLOGY METHOD 09/23/2024 8:06 PM [facility] RDW 11.8 11.0 - 15.0 % LAB HEMETOLOGY METHOD 09/23/2024 8:06 PM [facility] Platelets 265 130 - 400 K/mcL LAB HEMETOLOGY METHOD 09/23/2024 8:06 PM [facility] MPV 9.8 7.0 - 11.0 FL LAB HEMETOLOGY METHOD 09/23/2024 8:06 PM [facility] NRBC 0.0 <1.0 % LAB HEMETOLOGY METHOD 09/23/2024 8:06 PM [facility] NRBC Absolute 0.00 <0.10 K/mcL LAB HEMETOLOGY METHOD 09/23/2024 8:06 PM [facility] Neutrophils Relative 64.1 % LAB HEMETOLOGY METHOD 09/23/2024 8:06 PM [facility] Lymphocytes Relative 24.4 % LAB HEMETOLOGY METHOD 09/23/2024 8:06 PM [facility] Monocytes Relative 8.9 % LAB HEMETOLOGY METHOD 09/23/2024 8:06 PM [facility] Eosinophils Relative 2.2 % LAB HEMETOLOGY METHOD 09/23/2024 8:06 PM [facility] Basophils Relative 0.3 % LAB HEMETOLOGY METHOD 09/23/2024 8:06 PM [facility] Immature Granulocytes Relative 0.1 % LAB HEMETOLOGY METHOD 09/23/2024 8:06 PM [facility] Neutrophils Absolute 4.32 1.50 - 7.00 K/mcL LAB HEMETOLOGY METHOD 09/23/2024 8:06 PM [facility] Lymphocytes Absolute 1.65 1.00 - 5.00 K/mcL LAB HEMETOLOGY METHOD 09/23/2024 8:06 PM [facility] Monocytes Absolute 0.60 0.20 - 1.00 K/mcL LAB HEMETOLOGY METHOD 09/23/2024 8:06 PM [facility] Eosinophils Absolute 0.15 0.00 - 0.50 K/mcL LAB HEMETOLOGY METHOD 09/23/2024 8:06 PM [facility] Basophils Absolute 0.02 0.00 - 0.20 K/mcL LAB HEMETOLOGY METHOD 09/23/2024 8:[address] [facility] Immature Granulocytes Absolute 0.01 0.00 - 0.03 K/[facility] LAB HEMETOLOGY METHOD 09/23/2024 8:[address] [facility] Blood Venous blood specimen / Unknown Venipuncture / Unknown 09/23/2024 7:17 PM EDT 09/23/2024 7:50 PM EDT us Jw Ospina DO LAB BLOOD ORDERABLES Final Res ult [facility] [address] [place] [address], [place] [phone] * Comprehensive metabolic panel (09/23/2024 7:17 PM EDT) Sodium 136 133 - 145 mmol/L LAB CHEMISTRY METHOD 09/23/2024 8:15 PM [facility] Potassium 3.8 3.5 - 5.5 mmol/L LAB CHEMISTRY METHOD 09/23/2024 8:15 PM [facility] Chloride 105 96 - 110 mmol/L LAB CHEMISTRY METHOD 09/23/2024 8:15 PM [facility] CO2 24 21 - 32 mmol/L LAB CHEMISTRY METHOD 09/23/2024 8:15 PM [facility] Anion Gap 7 3 - 11 LAB CHEMISTRY METHOD 09/23/2024 8:15 PM [facility] Glucose 97 70 - 100 mg/dL LAB CHEMISTRY METHOD 09/23/2024 8:15 PM [facility] BUN 12 5 - 25 mg/dL LAB CHEMISTRY METHOD 09/23/2024 8:15 PM [facility] Creatinine 0.57 0.50 - 1.10 mg/dL LAB CHEMISTRY METHOD 09/23/2024 8:[facility] eGFR 124 >=60 mL/min/1. 73m2 LAB CHEMISTRY METHOD 09/23/2024 8:15 PM [facility] Comment:Calculation based on the Chronic Kidney Disease Epidemiology Collaboration (CKD-EPI) equation refit without adjustment for race. BUN/Creatinine Ratio 21.1 LAB CHEMISTRY METHOD 09/23/2024 8:15 PM [facility] Calcium 9.6 8.5 - 10.5 mg/dL LAB CHEMISTRY METHOD 09/23/2024 8:15 PM [facility] AST (SGOT) 13 10 - 42 unit/L LAB CHEMISTRY METHOD 09/23/2024 8:15 PM [facility] ALT (SGPT) 19 10 - 60 unit/L LAB CHEMISTRY METHOD 09/23/2024 8:15 PM [facility] Alkaline Phosphatase 74 42 - 121 unit/L LAB CHEMISTRY METHOD 09/23/2024 8:15 PM [facility] Total Protein 7.4 6.0 - 8.0 g/dL LAB CHEMISTRY METHOD 09/23/2024 8:15 PM [facility] Albumin 4.2 3.2 - 5.0 g/dL LAB CHEMISTRY METHOD 09/23/2024 8:15 PM [facility] Total Bilirubin 0.5 0.0 - 1.4 mg/dL LAB CHEMISTRY METHOD 09/23/2024 8:15 PM [facility] Blood Venous blood specimen / Unknown Venipuncture / Unknown 09/23/2024 7:17 PM EDT 09/23/2024 7:50 PM EDT us Jw Ospina DO LAB BLOOD ORDERABLES Final Res ult [facility] [address] [place] [address], from Last 3 Months Insurance [facility] Care Teams Hat Ironer Relationship Specialty Start Date End Date Flora Allen MD [address] [place] [address] , [address] [facility] D[facility]A: [facility] [place], [place] PCP - General Internal Medicine 04/17/19
--- OUTSIDE RECORDS SUMMARY | 2024-10-13 18:17 | XMS_ITS | Clinical Summary ---
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
[2024-10-13 18:29] VITALS: BP 112/72; PULSE 97; RESP 16; TEMP 36.2; O2SAT 98
--- NOTE | 2024-10-13 18:33 | PC.NURSE ---
A&O x 3 Patient reports to ED c/o shooting pains down right leg rated 5/10 non radiating at the moment. Patient has been feeling this pain for about 2 weeks, seen by primary and was issued muscle relaxer which were not effective. +CMS +ROM. Pain usually occurs when patient wakes up from sleeping. Lumbar spine x ray negative no acute findings. VSS and up to date plan of care on going
[2024-10-13 19:46] VITALS: BP 112/72; PULSE 97; RESP 16; TEMP 36.2; O2SAT 98
== END 2024-10-13 19:48 | disposition home or self-care (01) ==
PROVIDERS: Emergency Provider Emergency Medicine Emergency Medical Services; PCP Internal Medicine
DX: M54.16 Radiculopathy, lumbar region (principal); Q76.49 Other congenital malformations of spine, not associated with scoliosis; M54.50 Low back pain, unspecified; Z79.899 Other long term (current) drug therapy
CPT/HCPCS: 36415; 72100; 80053; 85025; 99283; 99284

== ENCOUNTER 2024-11-03 16:03 | Outpatient (AMB) | payer OTHER, SELFPAY ==
[2024-11-03 16:09] VITALS: BP 116/60; PULSE 67; TEMP 36.3; O2SAT 97; BMI 23.5
--- NOTE | 2024-11-03 16:09 | MHC.PC.OV ---
Vital Signs 11/03/24 16:09 Height 5 ft 5 in Weight 141 lb BMI 23.5 BP 116/60 Position Sitting Pulse 67 Pulse Source Pulse Oximeter Temp 97.4 F Temp Source Temporal Artery Scan Pulse Oximetry (%) 97 Intake Visit Reasons: [facility] 10/13 numbness/shocking feeling in both legs Tailer Out Required: No Accompanied by: Son Allergies No Known Allergies Allergy (Verified 11/03/24 16:10) Tobacco use date assessed: 11/03/24 Dental Screening Dental Screen Date: 11/03/24 Did you have a dental visit in the last 12 months?: No Did you have a dental problem in the last 6 months where you did not have access to dental care?: No Was dental information given to patient?: No HPI HPI Comments History of Present Illness Details 34 y/o Female patient who presents to the clinic for EDF. Pt was admitted at [facility] on 10/13 for an evaluation and treatment of Lumbar Radiculopathy associated with Paresthesia. She was prescribed Meloxicam with good pain relief. Pt willing to try Physical Therapy. [facility] Medical History (Updated 11/03/24 @ 16:40 by Kelly Parrish NP) Lumbar radiculopathy Ovarian cyst Pelvic pain (~10/04/24) GERD (gastroesophageal reflux disease) Leukopenia Physical exam Right knee pain Uterine fibroid Anemia Anxiety Surgical History Hx of tubal ligation History of section H/O myomectomy Family History Father Medical history unknown Mother Stroke Diabetes Maternal Grandmother Diabetes Hypertension Paternal Grandmother Breast cancer Throat cancer Son In good health Family/Other Ovarian cancer Social History Household Members: Children Housing: House Alcohol intake: current Alcohol intake frequency: a few times a month Alcohol type: wine and hard liquor Patient Tobacco Use Status: Never used Tobacco e-Cigarette/Vaping Use: Never Used Second Hand Smoke Exposure: No service: No Current occupational status: employed 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 Esequiel Greenfield, Marilee Lopez, Yosef Kang and colleagues, with an educational mary from [employer]. Review of Systems Const All systems reviewed & are unremarkable except as noted in HPI and below Physical exam (Primary Care) Vital Signs: Last Vital Signs Temp 97.4 F 11/03/24 16:09 Pulse 67 11/03/24 16:09 BP 116/60 11/03/24 16:09 Pulse Ox 97 11/03/24 16:09 BMI result Body Mass Index 23.5 Tobacco/Smoking Status: Tobacco use Status Tobacco use date assessed 11/03/24 11/03/24 16:15 Patient Tobacco Use Status Never used Tobacco 11/03/24 16:11 e-Cigarette/Vaping Use Never Used 11/03/24 16:11 Thrive Assessment: Date of Thrive Assessment Date Thrive assessed 11/03/24 11/03/24 16:15 Const General: no acute distress Nutritional Appearance: well nourished Orientation/consciousness: patient oriented x3 Resp Effort & Inspection: normal respiratory effort Cardio Heart sounds: S1 normal heart sound present and S2 normal heart sound present Back/Spine/Pelvis Back: back tenderness Thoracic/Lumbar Spine: pain with thoraco-lumbar ROM and lumbar spinal tenderness Neuro General: patient oriented x3, gait normal and moves all extremities Psych Speech and movement: Normal speech and movement present Coding Level of Care Code Est Pt Level 4 (89862) Diagnoses Lumbar radiculopathy M54.16 Time Spent (min) 20 Assessment & Plan Assessment & Plan (1) Lumbar radiculopathy: Code(s): M54.16 - Radiculopathy, lumbar region Category: Medical Plan: Refilled Meloxicam for pain relief. Placed Referral for PT. Orders: Orders PT Evaluation and Treatment Today M54.16 - Radiculopathy, lumbar region Medications: Changed From meloxicam 15 mg PO DAILY PRN 7 tabs 0RF pain M54.16 - Radiculopathy, lumbar region To meloxicam 15 mg PO DAILY 20 tabs 0RF pain M54.16 - Radiculopathy, lumbar region
== END 2024-11-03 16:59 | disposition home or self-care (01) ==
PROVIDERS: PCP Internal Medicine; Visit Provider Nurse Practitioner Family
DX: M54.16 Radiculopathy, lumbar region (principal)

== ENCOUNTER → 2024-11-03 16:03 | Outpatient (BNVA) | payer OTHER, SELFPAY | PROVIDERS: PCP Internal Medicine; Visit Provider Nurse Practitioner Family | DX: M54.16 Radiculopathy, lumbar region (principal) | CPT/HCPCS: 99212 ==

== ENCOUNTER 2024-11-09 14:24 | Outpatient (REF) | payer OTHER, SELFPAY ==
--- NOTE | ~2024-11-09 | US_ITS ---
EXAMINATION: US PELVIS TRANSABDOMINAL AND TRANSVAGINAL HISTORY: R10.2 - Pelvic and perineal pain COMPARISON: Comparison is made with the prior examination dated 09/14/2019. TECHNIQUE: Transabdominal and endovaginal real-time 2D shah-scale ultrasound was performed. FINDINGS: Uterus: The uterus is normal in size, measuring 8.1 x 4.7 x 5.1 cm. Myometrium has a normal echotexture. No fibroids are identified. Sutures are noted in the uterus consistent with prior myomectomy. Endometrium: The endometrial stripe measures 6 mm in thickness. Right ovary: The right ovary measures 3.0 x 2.1 x 1.5 cm. The right ovary is normal in size and echotexture. There is a paraovarian cyst measuring 3.2 x 2.1 x 3.1 cm. Left ovary: The left ovary measures 3.8 x 1.7 x 3.2 cm. The left ovary is normal in size and echotexture. Pelvic fluid: none. US/US pelvic and transvaginal IMPRESSION: 1. Status post myomectomy. No fibroids are identified. 2. 3.2 x 2.1 x 3.1 cm right paraovarian cyst. Electronically signed by: Esequiel Joshi MD 11/09/2024 03:17 PM EDT
--- OUTSIDE RECORDS SUMMARY | 2024-11-09 14:26 | XMS_ITS | Clinical Summary ---
Author Organization [address] [address] Phone Care Team Providers Care Reshipping Clerk Name Role Phone No, Pcp (Do Not [...] age to complete this topic Insurance UMR [id number] MEDICAID UMR Member Subscriber Plan / Payer (Ef fective 2015-Present) Name:Shu Cerda Relation to Subscriber:Self Name:DeshawnbayShu santana Payer ID:[id number] Type:Not on file Address: [place] [phone] [id number] MEDICAID UMR [id number] MEDICAID UMR [id number] MEDICAID Care Teams Reshipping Clerk Relationship Specialty Start Date End Date No, Pcp (Do Not Change Name) PCP - General 05/18/15
--- OUTSIDE RECORDS SUMMARY | 2024-11-09 14:26 | XMS_ITS | Clinical Summary ---
Author Organization [facility] Address [address] [place] [address] Phone Care Team Providers Care News Clipping Cutter Name Role Phone Flora Allen MD Primary Care Provider [phone] Allergies No known active allergies Medications oxyCODONE-aceta minophen (PERCOCET) 5-325 mg per tabletIndicatio ns:Acute right flank pain Take 1 tablet by mouth 2 (two) times a day if needed for severe pain for up to 5 doses. Max Daily Amount: 2 tablets 5 tablet 09/24/2024 Active Encounters Date Type Department Care Team Description 09/23/2024 7:41 PM EDT - 09/24/2024 3:26 AM EDT Emergency [facility] Emergency [address] [place] [address] Jw Davey MD Acute right flank pain (Primary Dx) Discharge Disposition: Home or Self Care from Last 3 Months Surgical History Surgery Date Site/Laterality Comments SECTION PROCEDURE: NM DELIVERY ONLY OTHER SURGICAL HISTORY 10/2019 PROCEDURE: [...] Cervical Cancer Screening: P ap Smear 2013 HIV Screening 03/08/2022 Hepatitis C Screening 03/08/2022 Social Influencers of Health Screening 03/08/2022 DTaP,Tdap,and Td Vaccines (2 - Td or Tdap) 06/24/2022 06/24/2012 COVID-19 Vaccine ( - 2023-2 5 season) 2023 Depression Screening 04/05/2024 Influenza Vaccine (#1) 2024 HIB Vaccines Aged [...] and culture (09/23/2024 7:23 PM EDT) Specific [place] Urine 1.025 1.003 - 1.030 LAB URINALYSIS - AUTOMATED METHOD 09/23/2024 8:05 PM [facility] pH, Urine 6.5 5.0 - 8.0 pH LAB URINALYSIS - AUTOMATED METHOD 09/23/2024 8:05 PM [facility] Leukocytes, Urine Negative Negative LAB URINALYSIS - AUTOMATED METHOD 09/23/2024 8:05 PM [facility] Nitrite, Urine Negative Negative LAB URINALYSIS - AUTOMATED METHOD 09/23/2024 8:05 PM [facility] Protein, Urine Negative <=Trace mg/dL LAB URINALYSIS - AUTOMATED METHOD 09/23/2024 8:05 PM [facility] Glucose, Urine Negative Negative mg/dL LAB URINALYSIS - AUTOMATED METHOD 09/23/2024 8:05 PM [facility] Ketones, Urine Trace(A) Negative mg/dL LAB URINALYSIS - AUTOMATED METHOD 09/23/2024 8:05 PM EDT [facility] Urobilinogen, Urine 1.0 0.2 - 1.0 mg/dL LAB URINALYSIS - AUTOMATED METHOD 09/23/2024 8:05 PM EDT [facility] Bilirubin, Urine Negative Negative LAB URINALYSIS - AUTOMATED METHOD 09/23/2024 8:05 PM EDT [facility] Blood, Urine Negative Negative LAB URINALYSIS - AUTOMATED METHOD 09/23/2024 8:05 PM EDT [facility] Urine Urine specimen obtained by clean catch procedure / Unknown Non-blood Collection / Unknown 09/23/2024 7:23 PM EDT 09/23/2024 7:50 PM EDT Jw Ospina LAB URINE ORDERABLES Final Res ult Performing Organization Address City/[facility]/ZIP Co de Phone Number [facility] [address] [place] [address], [place] [phone] * [place] urine culture tube (09/23/2024 7:23 PM EDT) Pathologist [facility] [place] Extra Tube Hold for add-ons. 09/26/2024 10:02 PM EDT [facility] Comment:Auto resulted. Urine Urine specimen obtained by clean catch procedure / Unknown Non-blood Collection / Unknown 09/23/2024 7:23 PM EDT 09/23/2024 7:50 PM EDT Jw Ospina DO LAB URINE ORDERABLES Final Res ult [facility] [address] [place] [address], [place] [phone] * POC , urine manually resulted (09/23/2024 7:23 PM EDT) Pathologist [facility] [place] HCG, Ur POC Negative Negative Urine Urine specimen obtained by clean catch procedure / Unknown 09/23/2024 7:23 PM EDT Jw Ospina DO POINT OF CARE TEST ENTER/EDIT ORDERABLES Final Result * CBC auto differential (09/23/2024 7:17 PM EDT) [facility] WBC 6.8 4.8 - 10.8 K/mcL LAB HEMETOLOGY [facility] RBC 4.00 3.80 - 4.80 M/mcL LAB HEMETOLOGY METHOD 09/23/2024 8:06 PM [facility] Hemoglobin 12.2 11.5 - 16.0 g/dL LAB HEMETOLOGY METHOD 09/23/2024 8:06 PM [facility] Hematocrit 35.9 35.0 - 47.0 % LAB HEMETOLOGY METHOD 09/23/2024 8:06 PM [facility] MCV 89.8 79.0 - 98.0 FL LAB HEMETOLOGY METHOD 09/23/2024 8:06 PM [facility] MCH 30.5 27.0 - 32.0 pcg LAB HEMETOLOGY METHOD 09/23/2024 8:06 PM [facility] MCHC 34.0 32.0 - 37.0 g/dL LAB HEMETOLOGY METHOD 09/23/2024 8:06 PM [facility] RDW 11.8 11.0 - 15.0 % LAB HEMETOLOGY METHOD 09/23/2024 8:06 PM [facility] Platelets 265 130 - 400 K/mcL LAB HEMETOLOGY METHOD 09/23/2024 8:06 PM [facility] MPV 9.8 7.0 - 11.0 FL LAB HEMETOLOGY METHOD 09/23/2024 8:06 PM [facility] NRBC 0.0 <1.0 % LAB HEMETOLOGY METHOD 09/23/2024 8:06 PM [facility] NRBC Absolute 0.00 <0.10 K/mcL LAB HEMETOLOGY METHOD 09/23/2024 8:06 PM [facility] Neutrophils Relative 64.1 % LAB HEMETOLOGY METHOD 09/23/2024 8:06 PM [facility] Lymphocytes Relative 24.4 % LAB HEMETOLOGY METHOD 09/23/2024 8:06 PM [facility] Monocytes Relative 8.9 % LAB HEMETOLOGY METHOD 09/23/2024 8:06 PM [facility] Eosinophils Relative 2.2 % LAB HEMETOLOGY METHOD 09/23/2024 8:06 PM [facility] Basophils Relative 0.3 % LAB HEMETOLOGY METHOD 09/23/2024 8:06 PM [facility] Immature Granulocytes Relative 0.1 % LAB HEMETOLOGY METHOD 09/23/2024 8:06 PM [facility] Neutrophils Absolute 4.32 1.50 - 7.00 K/mcL LAB HEMETOLOGY METHOD 09/23/2024 8:06 PM [facility] Lymphocytes Absolute 1.65 1.00 - 5.00 K/mcL LAB HEMETOLOGY METHOD 09/23/2024 8:06 PM [facility] Monocytes Absolute 0.60 0.20 - 1.00 K/mcL LAB HEMETOLOGY METHOD 09/23/2024 8:06 PM [facility] Eosinophils Absolute 0.15 0.00 - 0.50 K/mcL LAB HEMETOLOGY METHOD 09/23/2024 8:06 PM [facility] Basophils Absolute 0.02 0.00 - 0.20 K/mcL LAB HEMETOLOGY METHOD 09/23/2024 8:06 PM EDT [facility] Immature Granulocytes Absolute 0.01 0.00 - 0.03 K/[facility] LAB HEMETOLOGY METHOD 09/23/2024 8:06 PM EDT [facility] Blood Venous blood specimen / Unknown Venipuncture / Unknown 09/23/2024 7:17 PM EDT 09/23/2024 7:50 PM EDT us Jw Ospina DO LAB BLOOD ORDERABLES Final Res ult [facility] [address] [place] [address], [place] [phone] * Comprehensive metabolic panel (09/23/2024 7:17 PM EDT) Sodium 136 133 - 145 mmol/L LAB CHEMISTRY METHOD 09/23/2024 8:15 PM [facility] Potassium 3.8 3.5 - 5.5 mmol/L LAB CHEMISTRY METHOD 09/23/2024 8:15 PM [facility] Chloride 105 96 - 110 mmol/L LAB CHEMISTRY METHOD 09/23/2024 8:15 PM [facility] CO2 24 21 - 32 mmol/L LAB CHEMISTRY METHOD 09/23/2024 8:15 PM [facility] Anion Gap 7 3 - 11 LAB CHEMISTRY METHOD 09/23/2024 8:15 PM [facility] Glucose 97 70 - 100 mg/dL LAB CHEMISTRY METHOD 09/23/2024 8:15 PM [facility] BUN 12 5 - 25 mg/dL LAB CHEMISTRY METHOD 09/23/2024 8:15 PM [facility] Creatinine 0.57 0.50 - 1.10 mg/dL LAB CHEMISTRY METHOD [facility]/23[facility]24 [facility] eGFR 124 >=60 mL/min/1. 73m2 LAB CHEMISTRY METHOD 09/23/2024 8:15 PM [facility] Comment:Calculation based on the Chronic Kidney Disease Epidemiology Collaboration (CKD-EPI) equation refit without adjustment for race. BUN/Creatinine Ratio 21.1 LAB CHEMISTRY METHOD 09/23/2024 8:15 PM [facility] Calcium 9.6 8.5 - 10.5 mg/dL LAB CHEMISTRY METHOD 09/23/2024 8:15 PM [facility] AST (SGOT) 13 10 - 42 unit/L LAB CHEMISTRY METHOD 09/23/2024 8:15 PM [facility] ALT (SGPT) 19 10 - 60 unit/L LAB CHEMISTRY METHOD 09/23/2024 8:15 PM [facility] Alkaline Phosphatase 74 42 - 121 unit/L LAB CHEMISTRY METHOD 09/23/2024 8:15 PM [facility] Total Protein 7.4 6.0 - 8.0 g/dL LAB CHEMISTRY METHOD 09/23/2024 8:15 PM [facility] Albumin 4.2 3.2 - 5.0 g/dL LAB CHEMISTRY METHOD 09/23/2024 8:15 PM [facility] Total Bilirubin 0.5 0.0 - 1.4 mg/dL LAB CHEMISTRY METHOD 09/23/2024 8:15 PM [facility] Blood Venous blood specimen / Unknown Venipuncture / Unknown 09/23/2024 7:17 PM EDT 09/23/2024 7:50 PM EDT us Jw Ospina DO LAB BLOOD ORDERABLES Final Res ult [facility] [address] [place] [address], from Last 3 Months Insurance [facility] [place] [address] Care Teams News Clipping Cutter Relationship Specialty Start Date End Date Flora Allen MD [address] [place] [address] , [address] [facility] [place], [place] PCP - General Internal Medicine 04/17/19
== END 2024-11-09 14:25 | disposition home or self-care (01) ==
LOC: HO.US 14:24
PROVIDERS: PCP Internal Medicine; Visit Provider Advanced Practice Midwife
DX: R10.2 Pelvic and perineal pain (principal); N83.209 Unspecified ovarian cyst, unspecified side
CPT/HCPCS: 76830; 76856

== ENCOUNTER → 2024-11-09 14:25 | Outpatient (BNV) | payer OTHER, SELFPAY | PROVIDERS: PCP Internal Medicine; Visit Provider Radiology Diagnostic Radiology | DX: N83.291 Other ovarian cyst, right side (principal) | CPT/HCPCS: 76830; 76856 ==

== ENCOUNTER 2024-11-22 15:48 | Outpatient (REF) | payer OTHER, SELFPAY | END 2024-11-22 15:49 | disposition home or self-care (01) | LOC: HO.LAB 15:48 | PROVIDERS: PCP Internal Medicine; Visit Provider Advanced Practice Midwife | DX: Q50.5 Embryonic cyst of broad ligament (principal); R10.2 Pelvic and perineal pain; Z20.2 Contact with and (suspected) exposure to infections with a predominantly sexual mode of transmission | CPT/HCPCS: 99212 ==

== ENCOUNTER 2024-11-22 15:48 | Outpatient (AMB) | payer OTHER, SELFPAY ==
--- NOTE | 2024-11-22 16:06 | MHC.OFFVIS ---
Intake Visit Reasons: Ultra sound follow up Allergies No Known Allergies Allergy (Verified 11/22/24 16:06) HPI Comments Details: Patient is here today for a follow up ultrasound results, accompanied by her 2 children. She was previously in the [facility] ED on 10/13/2024, due to right-sided pelvic pain, dx. w/a 2.7cm cyst. Her discomfort is intensified w/her menstrual cycle and ovulation. [facility] Medical History (Updated 11/22/24 @ 16:43 by Marcy Waldron CNM) Para-ovarian cyst Lumbar radiculopathy Ovarian cyst Pelvic pain (~10/04/24) GERD (gastroesophageal reflux disease) Leukopenia Physical exam Right knee pain Uterine fibroid Anemia Anxiety Surgical History Hx of tubal ligation History of section H/O myomectomy Family History Father Medical history unknown Mother Stroke Diabetes Maternal Grandmother Diabetes Hypertension Paternal Grandmother Breast cancer Throat cancer Son In good health Family/Other Ovarian cancer Social History Household Members: Children Housing: House Alcohol intake: current Alcohol intake frequency: a few times a month Alcohol type: wine and hard liquor Patient Tobacco Use Status: Never used Tobacco e-Cigarette/Vaping Use: Never Used Second Hand Smoke Exposure: No service: No Current occupational status: employed 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 Sexual orientation: Straight/Heterosexual Gender identity: Female Cognitive needs: No Hearing needs: No Vision needs: No Female Reproductive History Menstrual Age of Menarche: 14 Review of Systems Const All systems reviewed & are unremarkable except as noted in HPI and below Physical Exam Const General: cooperative, healthy appearing and no acute distress Orientation/consciousness: patient oriented x3 GI Inspection: Yes normal to inspection Palpation (GI): Soft to palpation and Other GI palpation findings present (Nontender) Rectal Exam - Female: visual inspection normal General: Yes bladder normal to palpation External Female Exam: normal appearance of the urethra Speculum Exam - Vagina: normal appearance of the vagina, normal palpation and normal vaginal discharge Speculum Exam - Cervix: normal appearance of the cervix and normal palpation Bimanual exam- vagina & uterus: normal bimanual exam, normal palpation, uterine size normal, bladder normal to palpation, normal palpation, uterine shape normal and non-tender Bimanual Exam- Adnexa, other: normal adnexae and tender (Slight) on the right Neuro General: patient oriented x3 Results Reviewed Results Reviewed: [address] [address] Ultrasound Report Signed Patient: Shu Hays MR#: [id number] : 1990 Acct:[id number] Age/Sex: 34 / F ADM Date: 11/09/24 Loc: HO.US Attending Dr: Marcy Waldron CNM Ordering Physician: Marcy Waldron CNM Date of Service: 11/09/24 Procedure(s): US pelvic and transvaginal Accession Number(s): [id number] cc: Marcy Waldron CNM; Flora Ulloa MD~ EXAMINATION: US PELVIS TRANSABDOMINAL AND TRANSVAGINAL HISTORY: R10.2 - Pelvic and perineal pain COMPARISON: Comparison is made with the prior examination dated 09/14/2019. TECHNIQUE: Transabdominal and endovaginal real-time 2D shah-scale ultrasound was performed. FINDINGS: Uterus: The uterus is normal in size, measuring 8.1 x 4.7 x 5.1 cm. Myometrium has a normal echotexture. No fibroids are identified. Sutures are noted in the uterus consistent with prior myomectomy. Endometrium: The endometrial stripe measures 6 mm in thickness. Right ovary: The right ovary measures 3.0 x 2.1 x 1.5 cm. The right ovary is normal in size and echotexture. There is a paraovarian cyst measuring 3.2 x 2.1 x 3.1 cm. Left ovary: The left ovary measures 3.8 x 1.7 x 3.2 cm. The left ovary is normal in size and echotexture. Pelvic fluid: none. US/US pelvic and transvaginal IMPRESSION: 1. Status post myomectomy. No fibroids are identified. 2. 3.2 x 2.1 x 3.1 cm right paraovarian cyst. Electronically signed by: Esequiel Joshi MD 11/09/2024 03:17 PM EDT RP Dictated By: Esequiel Joshi MD Signed By: <Electronically signed by Esequiel Joshi MD in OV> 11/09/24 1517 DD/ 1447 TD/TT: 11/09/24 1504 [employer] Operator: Assessment & Plan Assessment & Plan (1) Pelvic pain: Onset Date: ~10/04/24 Code(s): R10.2 - Pelvic and perineal pain Category: Medical Plan: Discussed: Pelvic ultrasound findings- IMPRESSION: 1. Status post myomectomy. No fibroids are identified. 2. 3.2 x 2.1 x 3.1 cm right paraovarian cyst. Ultrasound ordered. BV panel and GC chlamydia cultures obtained today, await results for final plan of care. Follow up pelvic ultrasound. Safe sex, use of condoms always. The patient expressed understanding and agreement with the plan of care. All of her questions and concerns were addressed to the best of my ability. (2) Para-ovarian cyst: Code(s): Q50.5 - Embryonic cyst of broad ligament Category: Medical Plan Discussed-cyst size 3.2 cm, usually benign in nature, most resolve on their own. OTC comfort measures, pelvic rest and warnings when to seek emergency treatment and/or follow up in the office. The patient expressed understanding and agreement with the plan of care. All of her questions and concerns were addressed to the best of my ability. This note is constructed using voice recognition software. While every effort has been made to ensure accuracy, illustrator set errors may have been included. Orders: Orders US pelvic and transvaginal Today Q50.5 - Embryonic cyst of broad ligament, R10.2 - Pelvic and perineal pain Bacterial Vaginosis Panel Today Z20.2 - Contact with and (suspected) exposure to infections with a predominantly sexual mode of transmission CT NG by PCR Vag/Cerv Today Z20.2 - Contact with and (suspected) exposure to infections with a predominantly sexual mode of transmission Coding Level of Care Code Est Pt Level 3 (08506) Diagnoses Pelvic pain R10.2 Para-ovarian cyst Q50.5
--- OUTSIDE RECORDS SUMMARY | 2024-11-22 16:30 | XMS_ITS | Clinical Summary ---
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
--- OUTSIDE RECORDS SUMMARY | 2024-11-22 16:30 | XMS_ITS | Clinical Summary ---
Author Organization [facility] Address [address] [place] [address] Phone Care Team Providers Care Restorative Art Embalmer Name Role Phone Flora Allen MD Primary Care Provider [phone] Allergies No known active allergies Medications oxyCODONE-aceta minophen (PERCOCET) 5-325 mg per tabletIndicatio ns:Acute right flank pain Take 1 tablet by mouth 2 (two) times a day if needed for severe pain for up to 5 doses. Max Daily Amount: 2 tablets 5 tablet 09/24/2024 Active Encounters Date Type Department Care Team Description 09/23/2024 7:41 PM EDT - 09/24/2024 3:26 AM EDT Emergency [facility] Emergency [address] [place] [address] Jw Davey MD Acute right flank pain (Primary Dx) Discharge Disposition: Home or Self Care from Last 3 Months Surgical History Surgery Date Site/Laterality Comments SECTION PROCEDURE: LA DELIVERY ONLY OTHER SURGICAL HISTORY 10/2019 PROCEDURE: [...] and culture (09/23/2024 7:23 PM EDT) Specific [place] Urine 1.025 1.003 - 1.030 LAB URINALYSIS - AUTOMATED METHOD 09/23/2024 8:[address] [facility] pH, Urine 6.5 5.0 - 8.0 pH LAB URINALYSIS - AUTOMATED METHOD 09/23/2024 8:[address] [facility] Leukocytes, Urine Negative Negative LAB URINALYSIS - AUTOMATED METHOD 09/23/2024 8:[address] [facility] Nitrite, Urine Negative Negative LAB URINALYSIS - AUTOMATED METHOD 09/23/2024 8:[address] [facility] Protein, Urine Negative <=Trace mg/dL LAB URINALYSIS - AUTOMATED METHOD 09/23/2024 8:[address] [facility] Glucose, Urine Negative Negative mg/dL LAB URINALYSIS - AUTOMATED METHOD 09/23/2024 8:[address] [facility] Ketones, Urine Trace(A) Negative mg/dL LAB URINALYSIS - AUTOMATED METHOD 09/23/2024 8:05 PM EDT [facility] Urobilinogen, Urine 1.0 0.2 - 1.0 mg/dL LAB URINALYSIS - AUTOMATED METHOD 09/23/2024 8:05 PM EDT [facility] Bilirubin, Urine Negative Negative LAB URINALYSIS - AUTOMATED METHOD 09/23/2024 8:05 PM EDT [facility] Blood, Urine Negative Negative LAB URINALYSIS - AUTOMATED METHOD 09/23/2024 8:05 PM EDT [facility] Urine Urine specimen obtained by clean catch procedure / Unknown Non-blood Collection / Unknown 09/23/2024 7:23 PM EDT 09/23/2024 7:50 PM EDT Jw Ospina LAB URINE ORDERABLES Final Res ult Performing Organization Address City/[facility]/ZIP Co de Phone Number [facility] [address] [place] [address], [place] [phone] * [place] urine culture tube (09/23/2024 7:23 PM EDT) Pathologist [facility] Extra Tube Hold for add-ons. 09/26/2024 10:02 PM EDT [facility] Comment:Auto resulted. Urine Urine specimen obtained by clean catch procedure / Unknown Non-blood Collection / Unknown 09/23/2024 7:23 PM EDT 09/23/2024 7:50 PM EDT Jw Ospina DO LAB URINE ORDERABLES Final Res ult [facility] [address] [place] [address], [place] [phone] * POC , urine manually resulted (09/23/2024 7:23 PM EDT) Pathologist [facility] HCG, Ur POC Negative Negative Urine Urine specimen obtained by clean catch procedure / Unknown 09/23/2024 7:23 PM EDT Jw Ospina DO POINT OF CARE TEST ENTER/EDIT ORDERABLES Final Result * CBC auto differential (09/23/2024 7:17 PM EDT) [facility] WBC 6.8 4.8 - 10.8 K/mcL LAB [facility]EMETOLOG[facility] RBC 4.00 3.80 - 4.80 M/mcL LAB HEMETOLOGY METHOD 09/23/2024 8:[address] [facility] Hemoglobin 12.2 11.5 - 16.0 g/dL LAB HEMETOLOGY METHOD 09/23/2024 8:[address] [facility] Hematocrit 35.9 35.0 - 47.0 % LAB HEMETOLOGY METHOD 09/23/2024 8:[address] [facility] MCV 89.8 79.0 - 98.0 FL LAB HEMETOLOGY METHOD 09/23/2024 8:[address] [facility] MCH 30.5 27.0 - 32.0 pcg LAB HEMETOLOGY METHOD 09/23/2024 8:[address] [facility] MCHC 34.0 32.0 - 37.0 g/dL LAB HEMETOLOGY METHOD 09/23/2024 8:[address] [facility] RDW 11.8 11.0 - 15.0 % LAB HEMETOLOGY METHOD 09/23/2024 8:[address] [facility] Platelets 265 130 - 400 K/mcL LAB HEMETOLOGY METHOD 09/23/2024 8:[address] [facility] MPV 9.8 7.0 - 11.0 FL LAB HEMETOLOGY METHOD 09/23/2024 8:[address] [facility] NRBC 0.0 <1.0 % LAB HEMETOLOGY METHOD 09/23/2024 8:[address] [facility] NRBC Absolute 0.00 <0.10 K/mcL LAB HEMETOLOGY METHOD 09/23/2024 8:[address] [facility] Neutrophils Relative 64.1 % LAB HEMETOLOGY METHOD 09/23/2024 8:[address] [facility] Lymphocytes Relative 24.4 % LAB HEMETOLOGY METHOD 09/23/2024 8:[address] [facility] Monocytes Relative 8.9 % LAB HEMETOLOGY METHOD 09/23/2024 8:[address] [facility] Eosinophils Relative 2.2 % LAB HEMETOLOGY METHOD 09/23/2024 8:[address] [facility] Basophils Relative 0.3 % LAB HEMETOLOGY METHOD 09/23/2024 8:[address] [facility] Immature Granulocytes Relative 0.1 % LAB HEMETOLOGY METHOD 09/23/2024 8:[address] [facility] Neutrophils Absolute 4.32 1.50 - 7.00 K/mcL LAB HEMETOLOGY METHOD 09/23/2024 8:[address] [facility] Lymphocytes Absolute 1.65 1.00 - 5.00 K/mcL LAB HEMETOLOGY METHOD 09/23/2024 8:[address] [facility] Monocytes Absolute 0.60 0.20 - 1.00 K/mcL LAB HEMETOLOGY METHOD 09/23/2024 8:[address] [facility] Eosinophils Absolute 0.15 0.00 - 0.50 K/mcL LAB HEMETOLOGY METHOD 09/23/2024 8:[address] [facility] Basophils Absolute 0.02 0.00 - 0.20 K/mcL LAB HEMETOLOGY METHOD 09/23/2024 8:06 PM EDT [facility] Immature Granulocytes Absolute 0.01 0.00 - 0.03 K/[facility] LAB HEMETOLOGY METHOD 09/23/2024 8:06 PM EDT [facility] Blood Venous blood specimen / Unknown Venipuncture / Unknown 09/23/2024 7:17 PM EDT 09/23/2024 7:50 PM EDT us Jw Ospina DO LAB BLOOD ORDERABLES Final Res ult [facility] [address] [place] [address], [place] [phone] * Comprehensive metabolic panel (09/23/2024 7:17 PM EDT) Sodium 136 133 - 145 mmol/L LAB CHEMISTRY METHOD 09/23/2024 8:[address] [facility] Potassium 3.8 3.5 - 5.5 mmol/L LAB CHEMISTRY METHOD 09/23/2024 8:[address] [facility] Chloride 105 96 - 110 mmol/L LAB CHEMISTRY METHOD 09/23/2024 8:[address] [facility] CO2 24 21 - 32 mmol/L LAB CHEMISTRY METHOD 09/23/2024 8:[address] [facility] Anion Gap 7 3 - 11 LAB CHEMISTRY METHOD 09/23/2024 8:[address] [facility] Glucose 97 70 - 100 mg/dL LAB CHEMISTRY METHOD 09/23/2024 8:[address] [facility] BUN 12 5 - 25 mg/dL LAB CHEMISTRY METHOD 09/23/2024 8:[address] [facility] Creatinine 0.57 0.50 - 1.10 mg/dL LAB CHEMISTRY METHOD [facility]24 [facility] eGFR 124 >=60 mL/min/1. 73m2 LAB CHEMISTRY METHOD 09/23/2024 8:[address] [facility] Comment:Calculation based on the Chronic Kidney Disease Epidemiology Collaboration (CKD-EPI) equation refit without adjustment for race. BUN/Creatinine Ratio 21.1 LAB CHEMISTRY METHOD 09/23/2024 8:[address] [facility] Calcium 9.6 8.5 - 10.5 mg/dL LAB CHEMISTRY METHOD 09/23/2024 8:[address] [facility] AST (SGOT) 13 10 - 42 unit/L LAB CHEMISTRY METHOD 09/23/2024 8:[address] [facility] ALT (SGPT) 19 10 - 60 unit/L LAB CHEMISTRY METHOD 09/23/2024 8:[address] [facility] Alkaline Phosphatase 74 42 - 121 unit/L LAB CHEMISTRY METHOD 09/23/2024 8:[address] [facility] Total Protein 7.4 6.0 - 8.0 g/dL LAB CHEMISTRY METHOD 09/23/2024 8:[address] [facility] Albumin 4.2 3.2 - 5.0 g/dL LAB CHEMISTRY METHOD 09/23/2024 8:[address] [facility] Total Bilirubin 0.5 0.0 - 1.4 mg/dL LAB CHEMISTRY METHOD 09/23/2024 8:[address] [facility] Blood Venous blood specimen / Unknown Venipuncture / Unknown 09/23/2024 7:17 PM EDT 09/23/2024 7:50 PM EDT us Jw Ospina DO LAB BLOOD ORDERABLES Final Res ult [facility] [address] [place] [address], from Last 3 Months Insurance [facility] [place] [address] Care Teams Restorative Art Embalmer Relationship Specialty Start Date End Date Flora Allen MD [address] [place] [address] , [address] [facility] D/B/A: [facility] [place], [place] PCP - General Internal Medicine 04/17/19
== END 2024-11-22 16:57 ==
LOC: HO.HWS 15:48
PROVIDERS: PCP Internal Medicine; Visit Provider Advanced Practice Midwife
DX: R10.2 Pelvic and perineal pain (principal); Q50.5 Embryonic cyst of broad ligament
CPT/HCPCS: 99213

== ENCOUNTER 2024-11-22 16:42 | Outpatient (REF) | payer OTHER, SELFPAY ==
[2024-11-24 09:57] LABS: Bacterial Vaginosis PCR NEGATIVE (Negative); Candida Group PCR NOT DETECTED (Not Detect); Candida glab krusei PCR NOT DETECTED (Not Detect); Trichomonas vaginalis PCR NOT DETECTED (Not Detect)
[2024-11-24 10:29] LABS: CT PCR NOT DETECTED (Not Detect.); NG PCR NOT DETECTED (Not Detect.)
== END 2024-11-22 16:43 | disposition home or self-care (01) ==
LOC: HO.LNP 16:42
PROVIDERS: Visit Provider Advanced Practice Midwife
DX: Z20.2 Contact with and (suspected) exposure to infections with a predominantly sexual mode of transmission (principal); Z11.3 Encounter for screening for infections with a predominantly sexual mode of transmission; Z11.8 Encounter for screening for other infectious and parasitic diseases
CPT/HCPCS: 81515; 87491; 87591